=== PATIENT | male | born 1950 | race Caucasian/White ===

== ENCOUNTER 2020-09-16 13:47 | Inpatient (IN) | payer MEDICAID, OTHER ==
[~2020-09-16] VITALS: Ht 170.2 cm; Wt 77.6 kg
[2020-09-16] VITALS: BP 135/82
[2020-09-16 17:20] LABS: HEMATOCRIT. 43.8 % (42.0-52.0); HEMOGLOBIN. 14.7 g/dL (14.0-18.0); MEAN CORPUSCULAR HEMOGLOBIN 30.7 pg (28.0-32.0); MEAN CORPUSCULAR VOLUME 91.2 fL (80.0-94.0); MEAN PLATELET VOLUME 9.3 fl (7.4-10.4); PLATELET 218 x1000/uL (130-400); RED CELL DISTRIBUTION WIDTH 14.1 % (11.6-14.6)
[2020-09-16 17:26] LABS: CHLORIDE 109 mEq/L (98-107)
[2020-09-16 17:29] LABS: INR 1.1; PROTHROMBIN TIME 11.5 sec (9.6-11.0)
[2020-09-16 17:48] LABS: PLATELET ESTIMATE NORMAL
[2020-09-16] MEDS ORDERED: ENOXAPARIN 80MG/0.8ML SYR SUBCUT ONE (18:15)
[2020-09-16] MEDS ORDERED: ASPIRIN 325MG EC TABLET PO ONE (18:15)
[2020-09-16 20:32] LABS: CLARITY URINE CLEAR (CLEAR); COLOR URINE YELLOW (YELLOW); KETONES URINE TRACE (NEGATIVE); LEUKOCYTE ESTERASE URINE NEGATIVE (NEGATIVE); NITRITE URINE NEGATIVE (NEGATIVE); OCCULT BLOOD URINE NEGATIVE (NEGATIVE); PROTEIN URINE TRACE (NEGATIVE); SPECIFIC GRAVITY URINE 1.027 (1.005-1.030)
[2020-09-16] MEDS ORDERED: ACETAMINOPHEN 650MG SUPP PR PRN (21:45)
[2020-09-16] MEDS ORDERED: ONDANSETRON HCL 4MG/2ML INJ IV PRN (21:45)
[2020-09-16] MEDS ORDERED: NALOXONE HCL 0.4MG/ML VIAL IV PRN (22:00)
[2020-09-16 23:00] VITALS: BP 134/86
[2020-09-16] MEDS ORDERED: MIDAZOLAM HCL 5 MG/5 ML VIAL ONE (23:52)
[2020-09-16] MEDS ORDERED: FENTANYL CITRATE/PF 50MCG/ML 5ML VIAL ONE (23:53)
[2020-09-16] MEDS ORDERED: LIDOCAINE HCL 1% 20ML VIAL (Pyxis) INJ ONE (23:53)
[2020-09-16] MEDS ORDERED: IOHEXOL-300 100 ML BOTTLE ONE (23:54)
[2020-09-16] MEDS ORDERED: IODIXANOL 320MG/ML 100 ML BOTTLE IV ONE (23:54)
[2020-09-17] VITALS (48 sets, daily range): BP systolic 83–142; BP diastolic 49–113
[2020-09-17] MEDS ORDERED: IODIXANOL 320MG/ML 100 ML BOTTLE IV ONE (00:51)
[2020-09-17] MEDS ORDERED: HEPARIN 25,000 UNITS PREMIX 250 ML IV SCH (01:45)
[2020-09-17] MEDS ORDERED: LISINOPRIL 5MG TABLET PO SCH (01:45)
[2020-09-17] MEDS ORDERED: FUROSEMIDE 40MG/4ML VIAL IVP SCH (01:45)
[2020-09-17 03:16] LABS: BASOPHILS % 0.5 % (0.0-2.0); HEMATOCRIT. 47.7 % (42.0-52.0); HEMOGLOBIN. 16.4 g/dL (14.0-18.0); MEAN CORPUSCULAR HEMOGLOBIN 31.4 pg (28.0-32.0); MEAN CORPUSCULAR VOLUME 91.4 fL (80.0-94.0); MEAN PLATELET VOLUME 9.1 fl (7.4-10.4); MONOCYTES % 7.1 % (2.0-8.0); NEUTROPHILS % 81.4 % (40.0-76.0); PLATELET 182 x1000/uL (130-400); RED BLOOD CELL COUNT 5.22 mill/uL (4.7-6.1); RED CELL DISTRIBUTION WIDTH 14.1 % (11.6-14.6)
[2020-09-17 03:23] LABS: CHLORIDE 110 mEq/L (98-107)
[2020-09-17 03:26] LABS: INR 1.1; PARTIAL THROMBOPLASTIN TIME 32.6 sec (23.4-31.0); PROTHROMBIN TIME 11.9 sec (9.6-11.0)
[2020-09-17 03:30] LABS: LDL CHOLESTEROL 108 mg/dL (5-100)
[2020-09-17 03:31] LABS: HDL CHOLESTEROL 62 mg/dL (40-59)
[2020-09-17] MEDS: MORPHINE SULFATE 2 MG/ML CPJ (NOT FOR IM USE) IV PRN ×2 (04:52→23:52)
[2020-09-17] MEDS ORDERED: HEPARIN BOLUS PRN aPTT <30 IV ×2 (05:00→12:37)
[2020-09-17] MEDS ORDERED: HEPARIN BOLUS PRN aPTT 30-44 IV ×2 (05:00→12:37)
[2020-09-17] MEDS: HEPARIN 25,000 UNITS PREMIX 250 ML IV SCH ×2 (05:38→13:30)
[2020-09-17] MEDS ORDERED: PNEUMOCOCCAL 23-VAL P-SAC VAC 0.5 ML IM ONE (08:00)
[2020-09-17] MEDS ORDERED: ENOXAPARIN 80MG/0.8ML SYR SUBCUT SCH (08:00)
[2020-09-17] MEDS: FUROSEMIDE 40MG/4ML VIAL IVP SCH ×3 (08:25→23:08)
[2020-09-17] MEDS: PANTOPRAZOLE SODIUM 40 MG/VIAL IV SCH (08:26)
[2020-09-17] MEDS ORDERED: METOPROLOL TARTRATE 25MG TABLET PO SCH (09:00)
[2020-09-17] MEDS: ASPIRIN 81MG TABLET PO SCH (09:14)
[2020-09-17] MEDS: LISINOPRIL 5MG TABLET PO SCH ×2 (09:14→20:06)
[2020-09-17] MEDS: CARVEDILOL 3.125 MG TABLET PO SCH ×2 (09:14→20:06)
[2020-09-17] MEDS: ISOSORBIDE DINITRATE 10MG TABLET PO SCH ×3 (09:15→16:56)
[2020-09-17] MEDS ORDERED: NITROGLYCERIN 50MCG/ML 10ML VIAL (CATH LAB) IV ONE (09:20)
[2020-09-17] MEDS ORDERED: NICARDIPINE 100MCG/ML 10ML VIAL (CATH LAB) IV ONE (09:20)
[2020-09-17] MEDS ORDERED: ACETAMINOPHEN 325MG TABLET PO PRN (12:30)
[2020-09-17] MEDS ORDERED: DOCUSATE SODIUM 100MG CAPSULE PO PRN (18:45)
[2020-09-17] MEDS: ATORVASTATIN CALCIUM 40MG TABLET PO SCH (20:06)
[2020-09-18] VITALS (24 sets, daily range): BP systolic 93–124; BP diastolic 57–85
[2020-09-18 05:16] LABS: BASOPHILS % 0.7 % (0.0-2.0); EOSINOPHILS % 0.1 % (0.0-5.0); HEMATOCRIT. 46.5 % (42.0-52.0); HEMOGLOBIN. 15.5 g/dL (14.0-18.0); LYMPHOCYTES % 13.2 % (20.0-50.0); MEAN CORPUSCULAR HEMOGLOBIN 30.4 pg (28.0-32.0); MEAN CORPUSCULAR VOLUME 90.9 fL (80.0-94.0); MEAN PLATELET VOLUME 9.5 fl (7.4-10.4); MONOCYTES % 9.1 % (2.0-8.0); NEUTROPHILS % 76.9 % (40.0-76.0); PLATELET 176 x1000/uL (130-400); RED BLOOD CELL COUNT 5.11 mill/uL (4.7-6.1)
[2020-09-18 05:23] LABS: CHLORIDE 103 mEq/L (98-107)
[2020-09-18] MEDS: PANTOPRAZOLE SODIUM 40 MG/VIAL IV SCH (08:38)
[2020-09-18] MEDS: FUROSEMIDE 40MG/4ML VIAL IVP SCH ×3 (08:39→23:56)
[2020-09-18] MEDS: ASPIRIN 81MG TABLET PO SCH (08:39)
[2020-09-18] MEDS: CARVEDILOL 3.125 MG TABLET PO SCH ×2 (08:40→20:39)
[2020-09-18] MEDS: LISINOPRIL 5MG TABLET PO SCH ×2 (08:40→20:38)
[2020-09-18] MEDS: ISOSORBIDE DINITRATE 10MG TABLET PO SCH ×3 (08:40→17:00)
[2020-09-18] MEDS: HEPARIN 25,000 UNITS PREMIX 250 ML IV SCH (09:27)
[2020-09-18] MEDS ORDERED: POTASSIUM CHLORIDE 20MEQ TABLET SR PO SCH (10:00)
[2020-09-18] MEDS: ATORVASTATIN CALCIUM 40MG TABLET PO SCH (20:38)
[2020-09-18] MEDS ORDERED: DIPHENHYDRAMINE 25MG CAPSULE PO PRN (21:00)
[2020-09-18] MEDS ORDERED: ZOLPIDEM TARTRATE 5MG TABLET PO PRN (21:00)
[2020-09-18] MEDS ORDERED: NITROGLYCERIN 0.4MG TABLET SL SL PRN (21:30)
[2020-09-18] MEDS ORDERED: ACETAMINOPHEN 325MG TABLET PO PRN (21:30)
[2020-09-18] MEDS ORDERED: FUROSEMIDE 40MG/4ML VIAL IVP NR (22:00)
[2020-09-18] MEDS: ALLOPURINOL 300 MG TABLET PO SCH (22:21)
[2020-09-18] MEDS ORDERED: DOCUSATE SODIUM 100MG CAPSULE PO SCH (22:30)
[2020-09-18] MEDS ORDERED: ASCORBIC ACID 500 MG TABLET PO SCH (22:30)
[2020-09-18] MEDS ORDERED: BISACODYL 10MG SUPP PR PRN (22:30)
[2020-09-18] MEDS ORDERED: MAGNESIUM 2 G PREMIX 50 ML IV NR (23:00)
[2020-09-18] MEDS ORDERED: CHLORHEXIDINE GLUCONATE 4% EXTERNAL USE TOP SCH (23:00)
[2020-09-19] VITALS (32 sets, daily range): BP systolic 83–140; BP diastolic 49–89
[2020-09-19] MEDS: MORPHINE SULFATE 2 MG/ML CPJ (NOT FOR IM USE) IV PRN (03:42)
[2020-09-19] MEDS: CHLORHEXIDINE GLUCONATE 4% EXTERNAL USE TOP SCH ×2 (05:14→05:22)
[2020-09-19] MEDS: ALLOPURINOL 300 MG TABLET PO SCH (05:22)
[2020-09-19 06:07] LABS: CHLORIDE 105 mEq/L (98-107)
[2020-09-19 06:13] LABS: BASOPHILS % 0.3 % (0.0-2.0); EOSINOPHILS % 0.1 % (0.0-5.0); HEMATOCRIT. 48.7 % (42.0-52.0); HEMOGLOBIN. 16.2 g/dL (14.0-18.0); LYMPHOCYTES % 14.8 % (20.0-50.0); MEAN CORPUSCULAR HEMOGLOBIN 30.5 pg (28.0-32.0); MEAN CORPUSCULAR VOLUME 91.6 fL (80.0-94.0); MEAN PLATELET VOLUME 9.6 fl (7.4-10.4); MONOCYTES % 10.8 % (2.0-8.0); PLATELET 160 x1000/uL (130-400); RED BLOOD CELL COUNT 5.32 mill/uL (4.7-6.1); RED CELL DISTRIBUTION WIDTH 14.4 % (11.6-14.6)
[2020-09-19] MEDS: ASPIRIN 81MG TABLET PO SCH (09:47)
[2020-09-19] MEDS: CARVEDILOL 3.125 MG TABLET PO SCH ×2 (09:47→21:00)
[2020-09-19] MEDS: ISOSORBIDE DINITRATE 10MG TABLET PO SCH ×3 (09:47→17:19)
[2020-09-19] MEDS: LISINOPRIL 5MG TABLET PO SCH (09:47)
[2020-09-19] MEDS: PANTOPRAZOLE SODIUM 40 MG/VIAL IV SCH (09:54)
[2020-09-19] MEDS ORDERED: DOBUTAMINE 250 MG PREMIX 250 ML IV PRN (10:00)
[2020-09-19] MEDS ORDERED: NICARDIPINE 40 MG/200 ML PREMIX 200 ML IV PRN (10:00)
[2020-09-19] MEDS ORDERED: DEL NIDO ELECTROLYTE-S(PH 7.4) 1,000 ML IV PRN ×2 (10:00)
[2020-09-19] MEDS ORDERED: EPINEPHRINE 5 MG in DEXT 5% WATER 245 ML IV PRN (10:00)
[2020-09-19] MEDS ORDERED: INSULIN REGULAR (DRIP) 100 UNITS in SODIUM CHLORIDE 0.9% 99 ML IV PRN (10:00)
[2020-09-19] MEDS ORDERED: PAPAVERINE HCL 180MG in SODIUM CHLORIDE 0.9% 24ML IV PRN (10:00)
[2020-09-19] MEDS ORDERED: CEFAZOLIN 2,000 MG in DEXT 5% WATER 100 ML IV PRN (10:00)
[2020-09-19] MEDS ORDERED: NOREPINEPHRINE 8 MG in DEXT 5% WATER 242 ML IV PRN (10:00)
[2020-09-19] MEDS ORDERED: DOPAMINE 400 MG PREMIX 250 ML IV PRN (10:00)
[2020-09-19] MEDS: FUROSEMIDE 40MG/4ML VIAL IVP SCH ×2 (10:15→15:38)
[2020-09-19] MEDS ORDERED: NITROGLYCERIN 0.4MG TABLET SL SL PRN (10:45)
[2020-09-19] MEDS ORDERED: POTASSIUM CHLORIDE INJ 40 MEQ in DEXT 5% WATER 250 ML IV SCH (11:00)
[2020-09-19] MEDS: HEPARIN 25,000 UNITS PREMIX 250 ML IV SCH (14:15)
[2020-09-19] MEDS: ALBUMIN HUMAN 25GM/100ML (25%) IV SCH ×2 (18:06→19:25)
[2020-09-19] MEDS: ATORVASTATIN CALCIUM 40MG TABLET PO SCH (21:49)
[2020-09-20] VITALS (72 sets, daily range): BP systolic 89–152; BP diastolic 26–96
[2020-09-20] MEDS: ALBUMIN HUMAN 25GM/100ML (25%) IV SCH (00:11)
[2020-09-20 00:38] LABS: CHLORIDE 102 mEq/L (98-107)
[2020-09-20 00:44] LABS: PHOSPHORUS 3.8 mg/dL (2.5-4.9)
[2020-09-20] MEDS ORDERED: SODIUM CHL 0.9% IV ONE (01:30)
[2020-09-20] MEDS ORDERED: KCL IV ONE (01:30)
[2020-09-20] MEDS ORDERED: POTASSIUM CHLORIDE INJ 20 MEQ in SODIUM CHLORIDE 0.9% 250 ML IV NR (02:00)
[2020-09-20] MEDS: FUROSEMIDE 40MG/4ML VIAL IVP SCH ×3 (02:16→16:29)
[2020-09-20] MEDS ORDERED: POTASSIUM CHLORIDE INJ 40 MEQ in DEXT 5% WATER 250 ML IV NR (07:45)
[2020-09-20] MEDS ORDERED: MAGNESIUM 2 G PREMIX 50 ML IV NR (07:45)
[2020-09-20] MEDS: PANTOPRAZOLE SODIUM 40 MG/VIAL IV SCH (08:18)
[2020-09-20] MEDS: ASPIRIN 81MG TABLET PO SCH (08:19)
[2020-09-20] MEDS: CARVEDILOL 3.125 MG TABLET PO SCH ×2 (08:30→20:36)
[2020-09-20] MEDS ORDERED: AMIODARONE HCL 50MG/ML 9ML VIAL IV ONE (11:45)
[2020-09-20] MEDS: AMIODARONE HCL 900 MG in DEXT 5% WATER 500 ML IV PRN ×2 (12:32→18:29)
[2020-09-20] MEDS ORDERED: AMIODARONE HCL 150 MG in DEXT 5% WATER 97 ML IV NR (13:00)
[2020-09-20] MEDS: HEPARIN 25,000 UNITS PREMIX 250 ML IV SCH (15:39)
[2020-09-20 16:27] LABS: BASOPHILS % 0.4 % (0.0-2.0); EOSINOPHILS % 1.1 % (0.0-5.0); HEMATOCRIT. 41.9 % (42.0-52.0); HEMOGLOBIN. 14.6 g/dL (14.0-18.0); LYMPHOCYTES % 17.6 % (20.0-50.0); MEAN CORPUSCULAR HEMOGLOBIN 31.7 pg (28.0-32.0); MEAN PLATELET VOLUME 9.8 fl (7.4-10.4); MONOCYTES % 10.4 % (2.0-8.0); NEUTROPHILS % 70.5 % (40.0-76.0); PLATELET 154 x1000/uL (130-400); RED BLOOD CELL COUNT 4.61 mill/uL (4.7-6.1); RED CELL DISTRIBUTION WIDTH 13.9 % (11.6-14.6)
[2020-09-20 16:36] LABS: CHLORIDE 103 mEq/L (98-107)
[2020-09-20] MEDS: ATORVASTATIN CALCIUM 40MG TABLET PO SCH (20:38)
[2020-09-20] MEDS: ALLOPURINOL 300 MG TABLET PO SCH (20:39)
[2020-09-20] MEDS: MORPHINE SULFATE 2 MG/ML CPJ (NOT FOR IM USE) IV PRN (20:40)
[2020-09-20] MEDS ORDERED: ASCORBIC ACID 500 MG TABLET PO SCH (21:00)
[2020-09-20] MEDS ORDERED: CHLORHEXIDINE GLUCONATE 4% EXTERNAL USE TOP SCH (21:00)
[2020-09-20] MEDS ORDERED: DIPHENHYDRAMINE 25MG CAPSULE PO PRN (21:00)
[2020-09-20] MEDS ORDERED: DOCUSATE SODIUM 100MG CAPSULE PO SCH (21:00)
[2020-09-20] MEDS ORDERED: BISACODYL 10MG SUPP PR PRN (21:00)
[2020-09-21] VITALS (71 sets, daily range): BP systolic 84–121; BP diastolic 29–99
[2020-09-21] MEDS: FUROSEMIDE 40MG/4ML VIAL IVP SCH ×4 (00:04→23:46)
[2020-09-21] MEDS ORDERED: BACITRACIN 50,000 UNITS/VIAL ONE ×2 (04:28→05:47)
[2020-09-21] MEDS ORDERED: SKIN ADHESIVE 0.7 GM EA TOP ONE (04:28)
[2020-09-21] MEDS ORDERED: THROMBIN (BOVINE) 5000 UNITS/VIAL TOP ONE (04:28)
[2020-09-21] MEDS: ALLOPURINOL 300 MG TABLET PO SCH (04:43)
[2020-09-21] MEDS ORDERED: HEPARIN 1000 UNITS/ML 10ML ONE ×2 (04:59→07:48)
[2020-09-21] MEDS ORDERED: CHLORHEXIDINE GLUCONATE 4% EXTERNAL USE TOP SCH (05:00)
[2020-09-21 05:31] LABS: BASOPHILS % 0.4 % (0.0-2.0); EOSINOPHILS % 1.1 % (0.0-5.0); HEMATOCRIT. 43.5 % (42.0-52.0); HEMOGLOBIN. 15.3 g/dL (14.0-18.0); LYMPHOCYTES % 15.5 % (20.0-50.0); MEAN CORPUSCULAR HEMOGLOBIN 31.6 pg (28.0-32.0); MEAN CORPUSCULAR VOLUME 89.8 fL (80.0-94.0); MEAN PLATELET VOLUME 9.5 fl (7.4-10.4); MONOCYTES % 10.3 % (2.0-8.0); NEUTROPHILS % 72.7 % (40.0-76.0); PLATELET 161 x1000/uL (130-400); RED BLOOD CELL COUNT 4.84 mill/uL (4.7-6.1); RED CELL DISTRIBUTION WIDTH 13.8 % (11.6-14.6)
[2020-09-21 05:38] LABS: CHLORIDE 102 mEq/L (98-107)
[2020-09-21 05:43] LABS: PHOSPHORUS 3.8 mg/dL (2.5-4.9)
[2020-09-21] MEDS ORDERED: DEL NIDO ELECTROLYTE-S(PH 7.4) 1,000 ML IV PRN ×2 (06:00)
[2020-09-21] MEDS ORDERED: CEFAZOLIN 2,000 MG in DEXT 5% WATER 100 ML IV PRN (06:00)
[2020-09-21] MEDS ORDERED: DOPAMINE 400 MG PREMIX 250 ML IV PRN (06:00)
[2020-09-21] MEDS ORDERED: DOBUTAMINE 250 MG PREMIX 250 ML IV PRN (06:00)
[2020-09-21] MEDS ORDERED: PAPAVERINE HCL 180MG in SODIUM CHLORIDE 0.9% 24ML IV PRN (06:00)
[2020-09-21] MEDS ORDERED: EPINEPHRINE 5 MG in DEXT 5% WATER 245 ML IV PRN (06:00)
[2020-09-21] MEDS ORDERED: NICARDIPINE 40 MG/200 ML PREMIX 200 ML IV PRN (06:00)
[2020-09-21] MEDS ORDERED: NOREPINEPHRINE 8 MG in DEXT 5% WATER 242 ML IV PRN (06:00)
[2020-09-21] MEDS ORDERED: DEXAMETHASONE 4MG/ML 1ML VIAL ONE (06:16)
[2020-09-21] MEDS ORDERED: FUROSEMIDE 100MG/10ML VIAL ONE (06:51)
[2020-09-21] MEDS ORDERED: AMIODARONE HCL 50MG/ML 3ML VIAL IV ONE (06:52)
[2020-09-21] MEDS ORDERED: HYDROMORPHONE HCL/PF 2MG/ML (OR) ONE (07:04)
[2020-09-21] MEDS ORDERED: CALCIUM CHLORIDE 1GM/10ML SYR IV ONE ×2 (07:08→08:32)
[2020-09-21] MEDS ORDERED: ROCURONIUM BROMIDE 10MG/ML VIAL 5ML IV ONE (07:33)
[2020-09-21] MEDS ORDERED: BUMETANIDE 1MG/4ML VIAL ONE (07:49)
[2020-09-21] MEDS: CARVEDILOL 3.125 MG TABLET PO SCH ×2 (09:00→21:00)
[2020-09-21] MEDS: ASPIRIN 81MG TABLET PO SCH (09:00)
[2020-09-21] MEDS: PANTOPRAZOLE SODIUM 40 MG/VIAL IV SCH (09:00)
[2020-09-21] MEDS ORDERED: PROTAMINE SULFATE 10MG/ML VIAL 25ML IV ONE (09:22)
[2020-09-21] MEDS ORDERED: SODIUM BICARBONATE 8.4% 1 MEQ/ML 50ML SYR IV ONE (09:46)
[2020-09-21] MEDS ORDERED: MAGNESIUM 2 G PREMIX 50 ML IV PRN (10:00)
[2020-09-21] MEDS ORDERED: OXYCODONE HCL/ACETAMINOPHEN 5/325MG TABLET PO PRN ×2 (10:00)
[2020-09-21] MEDS ORDERED: ACETAMINOPHEN 325MG TABLET PO PRN (10:00)
[2020-09-21] MEDS ORDERED: ONDANSETRON HCL 4MG/2ML INJ IV PRN (10:00)
[2020-09-21] MEDS ORDERED: ALBUMIN HUMAN 25GM/100ML (25%) IV PRN (10:00)
[2020-09-21] MEDS ORDERED: SODIUM CHLORIDE 0.9% 1,000 ML IV PRN (10:00)
[2020-09-21] MEDS ORDERED: CALCIUM CHLORIDE 3,000 MG in DEXT 5% WATER 250 ML IV PRN (10:00)
[2020-09-21] MEDS ORDERED: ALBUMIN HUMAN 12.5G/250ML (5%) IV PRN (10:00)
[2020-09-21] MEDS ORDERED: MAGNESIUM SULFATE 3 GM in DEXT 5% WATER 100 ML IV PRN (10:00)
[2020-09-21] MEDS ORDERED: MAGNESIUM 1 G PREMIX 100 ML IV PRN (10:00)
[2020-09-21] MEDS ORDERED: MORPHINE SULFATE 2 MG/ML CPJ (NOT FOR IM USE) IV PRN (10:00)
[2020-09-21] MEDS ORDERED: POTASSIUM CHLORIDE 40MEQ/20ML INJ IV ONE ×2 (10:49→12:43)
[2020-09-21] MEDS: MAGNESIUM HYDROXIDE 400MG/5ML 30ML UDC PO SCH ×4 (11:00→23:45)
[2020-09-21 11:18] LABS: BG BASE EXCESS -7.4 mmol/L (-2.0-2.0); BG CARBOXYHEMOGLOBIN 0.9 % (0.5-1.5); BG FRACTION INSPIRED OXYGEN 48; BG HCO3 ACT 19.6 mmol/L (22.0-26.0); BG METHEMOGLOBIN 0.7 % (0.0-1.5); BG OXYGEN SATURATION 89.8 % (92.0-98.5); BG OXYHEMOGLOBIN 88.4 % (94.0-97.0); BG PCO2 45.6 mmHg (35.0-45.0); BG PH 7.252 (7.350-7.450); BG PO2 66.4 mmHg (75.0-100.0); BG SAMPLE SITE ALINE; BG TOTAL HEMOGLOBIN 13.8 g/dL (12.0-18.0); BG VENT MODE MASK - SIMPLE
[2020-09-21 11:59] LABS: HEMATOCRIT. 37.1 % (42.0-52.0); HEMOGLOBIN. 12.6 g/dL (14.0-18.0); MEAN CORPUSCULAR HEMOGLOBIN 31.5 pg (28.0-32.0); MEAN CORPUSCULAR VOLUME 92.6 fL (80.0-94.0); MEAN PLATELET VOLUME 9.9 fl (7.4-10.4); PLATELET 136 x1000/uL (130-400); RED BLOOD CELL COUNT 4.01 mill/uL (4.7-6.1); RED CELL DISTRIBUTION WIDTH 13.4 % (11.6-14.6)
[2020-09-21] MEDS ORDERED: KCL 10MEQ/50ML PREMIX 150 ML IV PRN (12:15)
[2020-09-21] MEDS ORDERED: KCL 10MEQ/50ML PREMIX 100 ML IV PRN (12:15)
[2020-09-21] MEDS ORDERED: KCL 10MEQ/50ML PREMIX 200 ML IV PRN (12:15)
[2020-09-21] MEDS: EPINEPHRINE 5 MG in DEXT 5% WATER 245 ML IV SCH ×3 (12:18→22:10)
[2020-09-21] MEDS: DOPAMINE 400MG/250ML PREMIX 250 ML IV SCH (12:30)
[2020-09-21] MEDS: AMIODARONE HCL 900 MG in DEXT 5% WATER 500 ML IV PRN (12:31)
[2020-09-21] MEDS: INSULIN REGULAR (DRIP) 100 UNITS in SODIUM CHLORIDE 0.9% 99 ML IV PRN ×2 (12:35→13:26)
[2020-09-21] MEDS ORDERED: ALBUMIN HUMAN 25GM/100ML (25%) IV ONE (12:43)
[2020-09-21] MEDS ORDERED: MAGNESIUM SULFATE 5GM/10ML VIAL IV ONE (12:43)
[2020-09-21] MEDS ORDERED: HEPARIN 10,000 UNITS/ML VIAL ONE (12:43)
[2020-09-21] MEDS ORDERED: SODIUM BICARBONATE 8.4% 1 MEQ/ML 50ML SYR IV SCH ×2 (12:45→12:55)
[2020-09-21] MEDS: DEXT 5%/0.45% NACL 1000ML 1,000 ML IV SCH (13:05)
[2020-09-21] MEDS: IPRATROPIUM/ALBUTEROL 0.5-3(2.5)MG/3ML NEB HHN SCH ×4 (13:38→23:49)
[2020-09-21] MEDS: CEFAZOLIN 1000MG PREMIX 50 ML IV SCH ×2 (14:43→22:13)
[2020-09-21] MEDS: KETOROLAC 30MG/ML VIAL IV PRN ×2 (15:16→23:50)
[2020-09-21] MEDS ORDERED: ALBUMIN HUMAN 25GM/100ML (25%) IV NR (17:15)
[2020-09-21 17:33] LABS: BG BASE EXCESS -2.1 mmol/L (-2.0-2.0); BG CARBOXYHEMOGLOBIN 0.3 % (0.5-1.5); BG FRACTION INSPIRED OXYGEN 44; BG HCO3 ACT 21.8 mmol/L (22.0-26.0); BG METHEMOGLOBIN 0.3 % (0.0-1.5); BG OXYHEMOGLOBIN 92.4 % (94.0-97.0); BG PCO2 34.3 mmHg (35.0-45.0); BG PH 7.422 (7.350-7.450); BG PO2 64.9 mmHg (75.0-100.0); BG SAMPLE SITE ALINE; BG TOTAL HEMOGLOBIN 10.2 g/dL (12.0-18.0); BG VENT MODE MASK - SIMPLE
[2020-09-21 17:59] LABS: HEMATOCRIT. 29.5 % (42.0-52.0); HEMOGLOBIN. 10.3 g/dL (14.0-18.0); MEAN CORPUSCULAR HEMOGLOBIN 31.6 pg (28.0-32.0); MEAN CORPUSCULAR VOLUME 91.1 fL (80.0-94.0); MEAN PLATELET VOLUME 10.4 fl (7.4-10.4); PLATELET 131 x1000/uL (130-400); RED BLOOD CELL COUNT 3.24 mill/uL (4.7-6.1); RED CELL DISTRIBUTION WIDTH 13.7 % (11.6-14.6)
[2020-09-21 18:18] LABS: PLATELET ESTIMATE NORMAL
[2020-09-21] MEDS: DOCUSATE SODIUM 100MG CAPSULE PO SCH (18:45)
[2020-09-21] MEDS: BACITRACIN 15GM TUBE TOP SCH (18:46)
[2020-09-21 18:51] LABS: PLATELET ESTIMATE NORMAL
[2020-09-21] MEDS ORDERED: DEXTROSE 50% WATER 50ML SYRINGE IV PRN ×2 (19:45)
[2020-09-21] MEDS ORDERED: INSULIN REGULAR (DRIP) 100 UNITS in SODIUM CHLORIDE 0.9% 100 ML IV SCH (20:00)
[2020-09-21] MEDS: BLOOD SUGAR DIAGNOSTIC STRIP TEST SCH ×4 (20:00→23:00)
[2020-09-21] MEDS: ATORVASTATIN CALCIUM 40MG TABLET PO SCH (21:37)
[2020-09-22] VITALS (126 sets, daily range): BP systolic 58–151; BP diastolic 7–140
[2020-09-22] MEDS: INSULIN REGULAR (DRIP) 100 UNITS in SODIUM CHLORIDE 0.9% 99 ML IV PRN (00:40)
[2020-09-22] MEDS: IPRATROPIUM/ALBUTEROL 0.5-3(2.5)MG/3ML NEB HHN SCH ×6 (00:46→20:20)
[2020-09-22] MEDS: BLOOD SUGAR DIAGNOSTIC STRIP TEST SCH ×21 (01:00→21:00)
[2020-09-22] MEDS ORDERED: AMIODARONE HCL 900 MG in DEXT 5% WATER 482 ML IV SCH (04:00)
[2020-09-22] MEDS: MAGNESIUM HYDROXIDE 400MG/5ML 30ML UDC PO SCH ×3 (04:10→11:00)
[2020-09-22 06:21] LABS: HEMATOCRIT. 27.8 % (42.0-52.0); HEMOGLOBIN. 9.5 g/dL (14.0-18.0); MEAN CORPUSCULAR VOLUME 90.8 fL (80.0-94.0); MEAN PLATELET VOLUME 10.6 fl (7.4-10.4); PLATELET 116 x1000/uL (130-400); RED BLOOD CELL COUNT 3.07 mill/uL (4.7-6.1); RED CELL DISTRIBUTION WIDTH 13.6 % (11.6-14.6)
[2020-09-22] MEDS: CEFAZOLIN 1000MG PREMIX 50 ML IV SCH (06:30)
[2020-09-22] MEDS ORDERED: FUROSEMIDE 100MG/10ML VIAL IVP SCH (08:15)
[2020-09-22] MEDS: CARVEDILOL 3.125 MG TABLET PO SCH ×2 (08:41→21:00)
[2020-09-22] MEDS: BACITRACIN 15GM TUBE TOP SCH ×2 (08:43→16:19)
[2020-09-22] MEDS: PANTOPRAZOLE SODIUM 40 MG/VIAL IV SCH (08:54)
[2020-09-22] MEDS: ASPIRIN 81MG TABLET PO SCH (08:54)
[2020-09-22] MEDS: AMIODARONE HCL 200 MG TABLET PO SCH ×2 (08:54→21:10)
[2020-09-22] MEDS: FAMOTIDINE 20MG/2ML VIAL IV SCH (08:54)
[2020-09-22] MEDS: DOCUSATE SODIUM 100MG CAPSULE PO SCH ×2 (08:55→17:03)
[2020-09-22] MEDS ORDERED: SODIUM CHLORIDE 0.9% IV SCH (09:00)
[2020-09-22] MEDS ORDERED: FUROSEMIDE IV SCH (09:00)
[2020-09-22] MEDS ORDERED: IPRATROPIUM/ALBUTEROL 0.5-3(2.5)MG/3ML NEB HHN PRN (10:00)
[2020-09-22] MEDS ORDERED: INSULIN REGULAR (DRIP) 100 UNITS in SODIUM CHLORIDE 0.9% 99 ML IV PRN (11:30)
[2020-09-22] MEDS ORDERED: ALBUMIN HUMAN 25GM/100ML (25%) IV ONE ×3 (12:00→18:00)
[2020-09-22] MEDS: DEXT 5%/0.45% NACL 1000ML 1,000 ML IV SCH (12:21)
[2020-09-22] MEDS ORDERED: ACETYLCYSTEINE 100MG/ML 10% VIAL 4ML INH SCH (14:00)
[2020-09-22] MEDS ORDERED: NA PHOS,M-B/NA PHOS,DI-BA ENEMA 118ML PR NR (15:45)
[2020-09-22] MEDS: ACETYLCYSTEINE 100MG/ML 10% VIAL 4ML INH SCH ×2 (15:46→22:00)
[2020-09-22] MEDS ORDERED: METOLAZONE 5MG TABLET PO NR (17:00)
[2020-09-22] MEDS: EPINEPHRINE 5 MG in DEXT 5% WATER 245 ML IV SCH (18:32)
[2020-09-22] MEDS ORDERED: DEXTROSE 50% WATER 50ML SYRINGE IV PRN (19:15)
[2020-09-22] MEDS: ACETAMINOPHEN 325MG TABLET PO PRN (20:36)
[2020-09-22] MEDS: ATORVASTATIN CALCIUM 40MG TABLET PO SCH (21:10)
[2020-09-22] MEDS: INSULIN LISPRO 100 UNITS/ML SUBCUT SCH (21:20)
[2020-09-22] MEDS: EPINEPHRINE 10 MG in SODIUM CHLORIDE 0.9% 240 ML IV PRN ×2 (22:13→22:30)
[2020-09-22] MEDS ORDERED: ALBUMIN HUMAN 25GM/100ML (25%) IV NR (23:00)
[2020-09-22 23:13] LABS: BG BASE EXCESS -1.6 mmol/L (-2.0-2.0); BG CARBOXYHEMOGLOBIN 0.3 % (0.5-1.5); BG DEOXYHEMOGLOBIN 9.8 % (0.0-5.0); BG FRACTION INSPIRED OXYGEN 36; BG HCO3 ACT 21.5 mmol/L (22.0-26.0); BG METHEMOGLOBIN 0.3 % (0.0-1.5); BG OXYGEN SATURATION 90.1 % (92.0-98.5); BG OXYHEMOGLOBIN 89.6 % (94.0-97.0); BG PCO2 30.3 mmHg (35.0-45.0); BG PH 7.469 (7.350-7.450); BG PO2 59.2 mmHg (75.0-100.0); BG SAMPLE SITE ALINE; BG TOTAL HEMOGLOBIN 9.3 g/dL (12.0-18.0); BG VENT MODE NASAL CANNULA
[2020-09-22 23:29] LABS: HEMOGLOBIN. 8.3 g/dL (14.0-18.0); MEAN CORPUSCULAR HEMOGLOBIN 30.9 pg (28.0-32.0); MEAN CORPUSCULAR VOLUME 92.4 fL (80.0-94.0); PLATELET 115 x1000/uL (130-400)
[2020-09-23] VITALS (129 sets, daily range): BP systolic 45–164; BP diastolic 29–113
[2020-09-23] MEDS ORDERED: NON FORMULARY PATIENT HOME MED XX SCH (00:45)
[2020-09-23] MEDS: DOPAMINE 400MG/250ML PREMIX 250 ML IV SCH ×2 (01:03→13:14)
[2020-09-23] MEDS ORDERED: FUROSEMIDE 40MG/4ML VIAL IVP NR ×2 (02:00→06:00)
[2020-09-23] MEDS ORDERED: CALCIUM CHLORIDE 5,000 MG in DEXT 5% WATER 500 ML IV NR (02:00)
[2020-09-23] MEDS: ALBUMIN HUMAN 25GM/100ML (25%) IV NR ×2 (03:52→06:37)
[2020-09-23] MEDS: IPRATROPIUM/ALBUTEROL 0.5-3(2.5)MG/3ML NEB HHN SCH ×7 (04:00→20:34)
[2020-09-23 05:26] LABS: PLATELET ESTIMATE SLIGHTLY DECREASED
[2020-09-23] MEDS: EPINEPHRINE 10 MG in SODIUM CHLORIDE 0.9% 240 ML IV PRN ×2 (06:00→13:13)
[2020-09-23] MEDS: BLOOD SUGAR DIAGNOSTIC STRIP TEST SCH ×4 (07:50→21:00)
[2020-09-23 08:15] LABS: HEMATOCRIT. 29.4 % (42.0-52.0); HEMOGLOBIN. 9.6 g/dL (14.0-18.0); MEAN CORPUSCULAR VOLUME 92.2 fL (80.0-94.0); MEAN PLATELET VOLUME 11.2 fl (7.4-10.4); PLATELET 88 x1000/uL (130-400); RED BLOOD CELL COUNT 3.19 mill/uL (4.7-6.1); RED CELL DISTRIBUTION WIDTH 14.8 % (11.6-14.6)
[2020-09-23] MEDS: INSULIN LISPRO 100 UNITS/ML SUBCUT SCH ×4 (08:20→21:00)
[2020-09-23] MEDS: ASPIRIN 81MG TABLET PO SCH (08:42)
[2020-09-23] MEDS: AMIODARONE HCL 200 MG TABLET PO SCH ×2 (08:42→22:35)
[2020-09-23] MEDS: PANTOPRAZOLE SODIUM 40 MG/VIAL IV SCH (08:42)
[2020-09-23] MEDS: DOCUSATE SODIUM 100MG CAPSULE PO SCH ×2 (08:42→17:43)
[2020-09-23] MEDS: FAMOTIDINE 20MG/2ML VIAL IV SCH (08:42)
[2020-09-23] MEDS ORDERED: SODIUM BICARBONATE 8.4% 1 MEQ/ML 50ML SYR IV NR (08:45)
[2020-09-23] MEDS ORDERED: DEXTROSE 50% WATER 50ML SYRINGE IV NR (08:45)
[2020-09-23] MEDS ORDERED: INSULIN REGULAR (HUMULIN R) 300UNITS/3ML VIAL SUBCUT NR (08:45)
[2020-09-23] MEDS: CARVEDILOL 3.125 MG TABLET PO SCH ×2 (08:47→21:00)
[2020-09-23] MEDS: BACITRACIN 15GM TUBE TOP SCH ×2 (08:50→17:43)
[2020-09-23] MEDS ORDERED: SODIUM CHLORIDE 0.9% IV SCH (09:00)
[2020-09-23] MEDS ORDERED: FUROSEMIDE IV SCH (09:00)
[2020-09-23] MEDS: ACETYLCYSTEINE 100MG/ML 10% VIAL 4ML INH SCH ×3 (10:24→16:44)
[2020-09-23] MEDS ORDERED: SODIUM POLYSTYRENE SULFONATE 15 G/60 ML BOT PO NR (11:00)
[2020-09-23 11:17] LABS: BG BASE EXCESS -3.1 mmol/L (-2.0-2.0); BG CARBOXYHEMOGLOBIN 0.3 % (0.5-1.5); BG DEOXYHEMOGLOBIN 1.5 % (0.0-5.0); BG FRACTION INSPIRED OXYGEN 100; BG HCO3 ACT 21.9 mmol/L (22.0-26.0); BG METHEMOGLOBIN 0.2 % (0.0-1.5); BG OXYGEN SATURATION 98.5 % (92.0-98.5); BG PCO2 39.2 mmHg (35.0-45.0); BG PH 7.365 (7.350-7.450); BG PO2 152.7 mmHg (75.0-100.0); BG SAMPLE SITE ALINE; BG TOTAL HEMOGLOBIN 10.8 g/dL (12.0-18.0); BG VENT MODE MASK - NRB
[2020-09-23] MEDS ORDERED: BISACODYL 10MG SUPP PR NR (11:30)
[2020-09-23] MEDS ORDERED: AMIODARONE HCL 50MG/ML 9ML VIAL IV ONE (12:15)
[2020-09-23] MEDS ORDERED: METOLAZONE 5MG TABLET PO NR (12:30)
[2020-09-23] MEDS ORDERED: BUMETANIDE 1MG/4ML VIAL IV NR (12:30)
[2020-09-23] MEDS ORDERED: LACTULOSE 20G/30ML UDC PO NR (13:15)
[2020-09-23 13:36] LABS: BG BASE EXCESS -1.8 mmol/L (-2.0-2.0); BG CARBOXYHEMOGLOBIN 0.3 % (0.5-1.5); BG FRACTION INSPIRED OXYGEN 44; BG HCO3 ACT 21.8 mmol/L (22.0-26.0); BG METHEMOGLOBIN 0.1 % (0.0-1.5); BG OXYGEN SATURATION 86.9 % (92.0-98.5); BG OXYHEMOGLOBIN 86.6 % (94.0-97.0); BG PCO2 32.7 mmHg (35.0-45.0); BG PH 7.441 (7.350-7.450); BG PO2 53.7 mmHg (75.0-100.0); BG SAMPLE SITE ALINE; BG TOTAL HEMOGLOBIN 11.1 g/dL (12.0-18.0); BG VENT MODE NASAL CANNULA
[2020-09-23] MEDS: AMIODARONE HCL 900 MG in DEXT 5% WATER 500 ML IV NR (13:53)
[2020-09-23 16:26] LABS: PLATELET ESTIMATE SLIGHTLY DECREASED
[2020-09-23 16:56] LABS: PLATELET ESTIMATE DECREASED
[2020-09-23 18:14] LABS: HEMATOCRIT 29.2 % (42.0-52.0); HEMOGLOBIN 9.8 g/dL (14.0-18.0)
[2020-09-23] MEDS ORDERED: SODIUM BICARBONATE 8.4% 1 MEQ/ML 50ML SYR IV SCH (20:15)
[2020-09-23] MEDS ORDERED: INSULIN REGULAR (HUMULIN R) 300UNITS/3ML VIAL SUBCUT ONE (20:15)
[2020-09-23] MEDS ORDERED: BUMETANIDE 1MG/4ML VIAL IV SCH (20:15)
[2020-09-23] MEDS ORDERED: INSULIN REGULAR (HUMULIN R) 300UNITS/3ML VIAL IV SCH (20:30)
[2020-09-23] MEDS ORDERED: DEXTROSE 50% WATER 50ML SYRINGE IV SCH (20:30)
[2020-09-23] MEDS ORDERED: AMIODARONE HCL 50MG/ML 3ML VIAL IV ONE (21:00)
[2020-09-23] MEDS ORDERED: AMIODARONE HCL 150 MG in DEXT 5% WATER 100 ML IV NR (21:00)
[2020-09-23 21:34] LABS: BG BASE EXCESS -2.3 mmol/L (-2.0-2.0); BG CARBOXYHEMOGLOBIN 0.3 % (0.5-1.5); BG DEOXYHEMOGLOBIN 4.1 % (0.0-5.0); BG FRACTION INSPIRED OXYGEN 100; BG HCO3 ACT 21.5 mmol/L (22.0-26.0); BG METHEMOGLOBIN 0.3 % (0.0-1.5); BG OXYGEN SATURATION 95.9 % (92.0-98.5); BG OXYHEMOGLOBIN 95.3 % (94.0-97.0); BG PCO2 33.9 mmHg (35.0-45.0); BG PH 7.421 (7.350-7.450); BG PO2 91.2 mmHg (75.0-100.0); BG SAMPLE SITE RIGHT BRACHIAL; BG TOTAL HEMOGLOBIN 11.8 g/dL (12.0-18.0); BG VENT MODE MASK - NRB
[2020-09-23] MEDS ORDERED: SODIUM POLYSTYRENE SULFONATE 15 G/60 ML BOT PO SCH (22:00)
[2020-09-23] MEDS: ATORVASTATIN CALCIUM 40MG TABLET PO SCH (22:35)
[2020-09-24] VITALS (107 sets, daily range): BP systolic 59–148; BP diastolic 27–108
[2020-09-24] MEDS: IPRATROPIUM/ALBUTEROL 0.5-3(2.5)MG/3ML NEB HHN SCH ×5 (00:15→20:32)
[2020-09-24] MEDS: ACETYLCYSTEINE 100MG/ML 10% VIAL 4ML INH SCH ×2 (00:15→15:12)
[2020-09-24] MEDS ORDERED: DEXTROSE 50% WATER 50ML SYRINGE IV ONE (01:30)
[2020-09-24] MEDS ORDERED: CALCIUM CHLORIDE 1GM/10ML SYR IV ONE (01:30)
[2020-09-24] MEDS ORDERED: AMIODARONE HCL 50MG/ML 3ML VIAL IV ONE (01:30)
[2020-09-24] MEDS ORDERED: SODIUM BICARBONATE 8.4% 1 MEQ/ML 50ML SYR IV ONE (01:30)
[2020-09-24] MEDS ORDERED: EPINEPHRINE 0.1MG/ML (1:10,000) 10ML SYR ONE (01:30)
[2020-09-24 01:48] LABS: BG BASE EXCESS -2.7 mmol/L (-2.0-2.0); BG CARBOXYHEMOGLOBIN 0.3 % (0.5-1.5); BG DEOXYHEMOGLOBIN 2.6 % (0.0-5.0); BG FRACTION INSPIRED OXYGEN 100; BG HCO3 ACT 21.6 mmol/L (22.0-26.0); BG METHEMOGLOBIN 0.2 % (0.0-1.5); BG OXYGEN SATURATION 97.4 % (92.0-98.5); BG OXYHEMOGLOBIN 96.9 % (94.0-97.0); BG PH 7.396 (7.350-7.450); BG PO2 105.8 mmHg (75.0-100.0); BG SAMPLE SITE RIGHT BRACHIAL; BG TOTAL HEMOGLOBIN 11.9 g/dL (12.0-18.0); BG VENT MODE MASK - NRB
[2020-09-24 01:55] LABS: BASOPHILS % 0.1 % (0.0-2.0); EOSINOPHILS % 0.1 % (0.0-5.0); HEMATOCRIT. 31.5 % (42.0-52.0); HEMOGLOBIN. 10.4 g/dL (14.0-18.0); LYMPHOCYTES % 7.5 % (20.0-50.0); MEAN CORPUSCULAR HEMOGLOBIN 30.2 pg (28.0-32.0); MONOCYTES % 7.9 % (2.0-8.0); NEUTROPHILS % 84.4 % (40.0-76.0); PLATELET 80 x1000/uL (130-400); RED BLOOD CELL COUNT 3.46 mill/uL (4.7-6.1); RED CELL DISTRIBUTION WIDTH 14.8 % (11.6-14.6)
[2020-09-24] MEDS: EPINEPHRINE 10 MG in SODIUM CHLORIDE 0.9% 240 ML IV PRN ×3 (02:50→19:52)
[2020-09-24] MEDS ORDERED: DEXTROSE 50% WATER 50ML SYRINGE IV NR ×2 (03:00→05:15)
[2020-09-24] MEDS ORDERED: INSULIN REGULAR (HUMULIN R) 300UNITS/3ML VIAL IV NR ×2 (03:00→05:15)
[2020-09-24] MEDS ORDERED: SODIUM POLYSTYRENE SULFONATE 15 G/60 ML BOT NG NR (03:00)
[2020-09-24 04:39] LABS: HEMATOCRIT. 32.2 % (42.0-52.0); HEMOGLOBIN. 10.7 g/dL (14.0-18.0); MEAN CORPUSCULAR HEMOGLOBIN 29.9 pg (28.0-32.0); MEAN CORPUSCULAR VOLUME 90.2 fL (80.0-94.0); MEAN PLATELET VOLUME 11.4 fl (7.4-10.4); RED BLOOD CELL COUNT 3.57 mill/uL (4.7-6.1); RED CELL DISTRIBUTION WIDTH 14.8 % (11.6-14.6)
[2020-09-24] MEDS: DOPAMINE 400MG/250ML PREMIX 250 ML IV SCH (05:03)
[2020-09-24] MEDS: SODIUM CHLORIDE 0.9% IV SCH (05:15)
[2020-09-24] MEDS: FUROSEMIDE IV SCH (05:15)
[2020-09-24 06:17] LABS: BG CARBOXYHEMOGLOBIN 0.1 % (0.5-1.5); BG DEOXYHEMOGLOBIN 6.2 % (0.0-5.0); BG FRACTION INSPIRED OXYGEN 100; BG HCO3 ACT 19.2 mmol/L (22.0-26.0); BG METHEMOGLOBIN 0.2 % (0.0-1.5); BG OXYGEN SATURATION 93.8 % (92.0-98.5); BG OXYHEMOGLOBIN 93.5 % (94.0-97.0); BG PCO2 33.1 mmHg (35.0-45.0); BG PH 7.382 (7.350-7.450); BG PO2 79.1 mmHg (75.0-100.0); BG SAMPLE SITE RIGHT BRACHIAL; BG TOTAL HEMOGLOBIN 11.6 g/dL (12.0-18.0); BG VENT MODE MASK - NRB
[2020-09-24] MEDS: SODIUM BICARBONATE 100 MEQ in SODIUM CHLORIDE 0.45% 1,000 ML IV SCH (06:30)
[2020-09-24] MEDS: BLOOD SUGAR DIAGNOSTIC STRIP TEST SCH ×4 (07:50→21:00)
[2020-09-24 08:24] LABS: BG BASE EXCESS -0.4 mmol/L (-2.0-2.0); BG CARBOXYHEMOGLOBIN 0.3 % (0.5-1.5); BG DEOXYHEMOGLOBIN 1.2 % (0.0-5.0); BG FRACTION INSPIRED OXYGEN 100; BG HCO3 ACT 22.6 mmol/L (22.0-26.0); BG METHEMOGLOBIN 0.4 % (0.0-1.5); BG OXYGEN SATURATION 98.8 % (92.0-98.5); BG OXYHEMOGLOBIN 98.1 % (94.0-97.0); BG PCO2 31.8 mmHg (35.0-45.0); BG PO2 177.9 mmHg (75.0-100.0); BG SAMPLE SITE RIGHT BRACHIAL; BG TOTAL RESPIRATORY RATE 19 b/min; BG VENT MODE MASK - BIPAP
[2020-09-24] MEDS: AMIODARONE HCL 200 MG TABLET PO SCH (08:33)
[2020-09-24] MEDS: ASPIRIN 81MG TABLET PO SCH (08:33)
[2020-09-24] MEDS: INSULIN LISPRO 100 UNITS/ML SUBCUT SCH ×4 (08:33→21:00)
[2020-09-24] MEDS: FAMOTIDINE 20MG TABLET PO SCH (08:33)
[2020-09-24] MEDS: CARVEDILOL 3.125 MG TABLET PO SCH ×2 (08:34→21:00)
[2020-09-24] MEDS: DOCUSATE SODIUM 100MG CAPSULE PO SCH ×2 (08:34→17:00)
[2020-09-24] MEDS: BACITRACIN 15GM TUBE TOP SCH ×2 (08:35→17:34)
[2020-09-24] MEDS ORDERED: HEPARIN 1000 UNITS/ML 10ML ONE (08:47)
[2020-09-24] MEDS ORDERED: LIDOCAINE HCL 1% 20ML VIAL (Pyxis) INJ ONE (08:48)
[2020-09-24 09:54] LABS: BG BASE EXCESS -0.8 mmol/L (-2.0-2.0); BG CARBOXYHEMOGLOBIN 0.3 % (0.5-1.5); BG DEOXYHEMOGLOBIN 1.7 % (0.0-5.0); BG FRACTION INSPIRED OXYGEN 100; BG HCO3 ACT 22.8 mmol/L (22.0-26.0); BG METHEMOGLOBIN 0.3 % (0.0-1.5); BG OXYGEN SATURATION 98.3 % (92.0-98.5); BG OXYHEMOGLOBIN 97.7 % (94.0-97.0); BG PCO2 34.1 mmHg (35.0-45.0); BG PH 7.443 (7.350-7.450); BG PO2 137.1 mmHg (75.0-100.0); BG SAMPLE SITE RIGHT RADIAL; BG VENT MODE MASK - BIPAP
[2020-09-24] MEDS ORDERED: VASOPRESSIN 20 UNIT in SODIUM CHLORIDE 0.9% 99 ML IV PRN (10:15)
[2020-09-24] MEDS: AMIODARONE HCL 900 MG in DEXT 5% WATER 500 ML IV NR (11:11)
[2020-09-24] MEDS: NOREPINEPHRINE 32 MG in DEXT 5% WATER 218 ML IV PRN (11:12)
[2020-09-24] MEDS ORDERED: WATER IV ONE (12:30)
[2020-09-24] MEDS ORDERED: DEXTROSE 5% IV ONE (12:30)
[2020-09-24] MEDS ORDERED: AMIODARONE HCL IV ONE (12:30)
[2020-09-24 13:52] LABS: HEPATITIS B SURFACE ANTIGEN NEGATIVE
[2020-09-24 14:22] LABS: HEPATITIS A AB IGM NEGATIVE (NEGATIVE)
[2020-09-24 14:22] LABS: PLATELET ESTIMATE DECREASED
[2020-09-24 14:23] LABS: PLATELET 77 x1000/uL (130-400)
[2020-09-24 15:19] LABS: HEMOGLOBIN. 11.8 g/dL (14.0-18.0); MEAN CORPUSCULAR HEMOGLOBIN 31.4 pg (28.0-32.0); MEAN CORPUSCULAR VOLUME 90.4 fL (80.0-94.0); MEAN PLATELET VOLUME 11.4 fl (7.4-10.4); PLATELET 85 x1000/uL (130-400); RED BLOOD CELL COUNT 3.76 mill/uL (4.7-6.1)
[2020-09-24 15:25] LABS: CHLORIDE 103 mEq/L (98-107)
[2020-09-24 18:16] LABS: PLATELET ESTIMATE DECREASED
[2020-09-24] MEDS ORDERED: LIDOCAINE 2G PREMIX 500 ML IV PRN (20:45)
[2020-09-24] MEDS ORDERED: LIDOCAINE HCL 2% 5ML SYRINGE IV PRN (20:45)
[2020-09-24] MEDS: ATORVASTATIN CALCIUM 40MG TABLET PO SCH (21:47)
[2020-09-25] VITALS (79 sets, daily range): BP systolic 79–117; BP diastolic 48–84
[2020-09-25] MEDS: IPRATROPIUM/ALBUTEROL 0.5-3(2.5)MG/3ML NEB HHN SCH ×6 (00:42→20:25)
[2020-09-25] MEDS: ACETYLCYSTEINE 100MG/ML 10% VIAL 4ML INH SCH ×4 (00:43→20:25)
[2020-09-25] MEDS: DOPAMINE 400MG/250ML PREMIX 250 ML IV SCH ×2 (00:55→18:26)
[2020-09-25] MEDS: EPINEPHRINE 10 MG in SODIUM CHLORIDE 0.9% 240 ML IV PRN ×2 (03:04→11:34)
[2020-09-25 05:35] LABS: HEMATOCRIT. 36.1 % (42.0-52.0); HEMOGLOBIN. 11.9 g/dL (14.0-18.0); MEAN CORPUSCULAR VOLUME 90.8 fL (80.0-94.0); MEAN PLATELET VOLUME 11.8 fl (7.4-10.4); PLATELET 107 x1000/uL (130-400); RED BLOOD CELL COUNT 3.98 mill/uL (4.7-6.1); RED CELL DISTRIBUTION WIDTH 14.8 % (11.6-14.6)
[2020-09-25 05:44] LABS: CHLORIDE 101 mEq/L (98-107)
[2020-09-25 05:52] LABS: PHOSPHORUS 5.2 mg/dL (2.5-4.9)
[2020-09-25] MEDS: FUROSEMIDE IV SCH (06:22)
[2020-09-25] MEDS: SODIUM CHLORIDE 0.9% IV SCH (06:22)
[2020-09-25] MEDS ORDERED: DIGOXIN 500MCG/2ML AMP IV SCH (07:30)
[2020-09-25] MEDS: FAMOTIDINE 20MG TABLET PO SCH (08:15)
[2020-09-25] MEDS: DOCUSATE SODIUM 100MG CAPSULE PO SCH ×2 (08:15→16:29)
[2020-09-25] MEDS: CARVEDILOL 3.125 MG TABLET PO SCH (08:15)
[2020-09-25] MEDS: ASPIRIN 81MG TABLET PO SCH (08:15)
[2020-09-25] MEDS: INSULIN LISPRO 100 UNITS/ML SUBCUT SCH ×4 (08:20→20:58)
[2020-09-25] MEDS: BLOOD SUGAR DIAGNOSTIC STRIP TEST SCH ×4 (08:22→20:58)
[2020-09-25] MEDS: SODIUM BICARBONATE 100 MEQ in SODIUM CHLORIDE 0.45% 1,000 ML IV SCH (08:46)
[2020-09-25 08:52] LABS: BG CARBOXYHEMOGLOBIN 0.2 % (0.5-1.5); BG HCO3 ACT 24.7 mmol/L (22.0-26.0); BG METHEMOGLOBIN 0.1 % (0.0-1.5); BG OXYHEMOGLOBIN 94.7 % (94.0-97.0); BG PCO2 32.8 mmHg (35.0-45.0); BG PH 7.495 (7.350-7.450); BG PO2 75.4 mmHg (75.0-100.0); BG SAMPLE SITE RIGHT RADIAL; BG TOTAL HEMOGLOBIN 13.4 g/dL (12.0-18.0); BG VENT MODE MASK - BIPAP
[2020-09-25] MEDS: BACITRACIN 15GM TUBE TOP SCH ×2 (13:06→16:33)
[2020-09-25 14:34] LABS: NUCLEATED RED BLOOD CELLS 2 /100 WBC; PLATELET ESTIMATE DECREASED
[2020-09-25] MEDS ORDERED: LIDOCAINE HCL 2% 5ML SYRINGE IV NR (17:26)
[2020-09-25] MEDS: LIDOCAINE HCL 2% 5ML SYRINGE IV NR ×2 (17:26→20:14)
[2020-09-25] MEDS: METOCLOPRAMIDE HCL 10MG/2ML VIAL IV SCH (17:45)
[2020-09-25] MEDS ORDERED: MAGNESIUM 2 G PREMIX 50 ML IV NR (18:00)
[2020-09-25] MEDS: ATORVASTATIN CALCIUM 40MG TABLET PO SCH (20:32)
[2020-09-26] VITALS (118 sets, daily range): BP systolic 81–147; BP diastolic 47–137
[2020-09-26] MEDS: METOCLOPRAMIDE HCL 10MG/2ML VIAL IV SCH ×4 (00:03→18:25)
[2020-09-26] MEDS: IPRATROPIUM/ALBUTEROL 0.5-3(2.5)MG/3ML NEB HHN SCH ×6 (00:22→19:40)
[2020-09-26] MEDS: SODIUM CHLORIDE 0.9% IV SCH (01:11)
[2020-09-26] MEDS: FUROSEMIDE IV SCH (01:11)
[2020-09-26] MEDS: INSULIN LISPRO 100 UNITS/ML SUBCUT SCH ×4 (08:20→20:42)
[2020-09-26] MEDS: BLOOD SUGAR DIAGNOSTIC STRIP TEST SCH ×4 (08:29→20:41)
[2020-09-26] MEDS: ACETYLCYSTEINE 100MG/ML 10% VIAL 4ML INH SCH ×2 (08:36→16:25)
[2020-09-26] MEDS ORDERED: POTASSIUM CHLORIDE 20MEQ/PACKET PO SCH (09:00)
[2020-09-26] MEDS: FAMOTIDINE 20MG TABLET PO SCH (09:09)
[2020-09-26] MEDS: DOCUSATE SODIUM 100MG CAPSULE PO SCH ×2 (09:09→16:38)
[2020-09-26] MEDS: ASPIRIN 81MG TABLET PO SCH (09:09)
[2020-09-26] MEDS: BACITRACIN 15GM TUBE TOP SCH ×2 (09:09→16:38)
[2020-09-26 10:15] LABS: BG BASE EXCESS 7.2 mmol/L (-2.0-2.0); BG CARBOXYHEMOGLOBIN 0.1 % (0.5-1.5); BG DEOXYHEMOGLOBIN 0.8 % (0.0-5.0); BG FRACTION INSPIRED OXYGEN 70; BG HCO3 ACT 29.7 mmol/L (22.0-26.0); BG METHEMOGLOBIN 0.5 % (0.0-1.5); BG OXYGEN SATURATION 99.2 % (92.0-98.5); BG OXYHEMOGLOBIN 98.6 % (94.0-97.0); BG PCO2 35.2 mmHg (35.0-45.0); BG PH 7.544 (7.350-7.450); BG PO2 198.7 mmHg (75.0-100.0); BG SAMPLE SITE RIGHT BRACHIAL; BG TOTAL HEMOGLOBIN 16.5 g/dL (12.0-18.0); BG TOTAL RESPIRATORY RATE 21 b/min; BG VENT MODE MASK - BIPAP
[2020-09-26] MEDS: FUROSEMIDE 40MG/4ML VIAL IVP SCH ×2 (11:37→18:38)
[2020-09-26] MEDS: ACETAMINOPHEN 325MG TABLET PO PRN (11:57)
[2020-09-26 12:33] LABS: HEMATOCRIT. 45.9 % (42.0-52.0); HEMOGLOBIN. 15.1 g/dL (14.0-18.0); MEAN CORPUSCULAR HEMOGLOBIN 29.9 pg (28.0-32.0); MEAN CORPUSCULAR VOLUME 91.2 fL (80.0-94.0); MEAN PLATELET VOLUME 10.8 fl (7.4-10.4); PLATELET 134 x1000/uL (130-400); RED BLOOD CELL COUNT 5.04 mill/uL (4.7-6.1); RED CELL DISTRIBUTION WIDTH 14.7 % (11.6-14.6)
[2020-09-26] MEDS: ALBUMIN HUMAN 25GM/100ML (25%) IV SCH ×3 (13:11→18:26)
[2020-09-26] MEDS: DOPAMINE 400MG/250ML PREMIX 250 ML IV SCH (13:25)
[2020-09-26 14:24] LABS: PLATELET ESTIMATE NORMAL
[2020-09-26] MEDS: HEPARIN 5000 UNITS/ML VIAL SUBCUT SCH (18:25)
[2020-09-26] MEDS ORDERED: DIGOXIN 500MCG/2ML AMP IV NR (20:15)
[2020-09-26] MEDS: ATORVASTATIN CALCIUM 40MG TABLET PO SCH (20:41)
[2020-09-27] VITALS (90 sets, daily range): BP systolic 83–117; BP diastolic 54–80
[2020-09-27] MEDS: IPRATROPIUM/ALBUTEROL 0.5-3(2.5)MG/3ML NEB HHN SCH ×6 (00:01→21:01)
[2020-09-27] MEDS: ACETYLCYSTEINE 100MG/ML 10% VIAL 4ML INH SCH ×3 (00:01→16:22)
[2020-09-27] MEDS: METOCLOPRAMIDE HCL 10MG/2ML VIAL IV SCH ×4 (01:04→17:43)
[2020-09-27] MEDS ORDERED: POTASSIUM CHLORIDE 20MEQ/PACKET PO NR (02:00)
[2020-09-27] MEDS: FUROSEMIDE 40MG/4ML VIAL IVP SCH (04:04)
[2020-09-27 05:44] LABS: PHOSPHORUS 1.9 mg/dL (2.5-4.9)
[2020-09-27 05:48] LABS: HEMATOCRIT. 41.5 % (42.0-52.0); HEMOGLOBIN. 13.7 g/dL (14.0-18.0); MEAN PLATELET VOLUME 10.4 fl (7.4-10.4); PLATELET 139 x1000/uL (130-400); RED BLOOD CELL COUNT 4.56 mill/uL (4.7-6.1); RED CELL DISTRIBUTION WIDTH 14.6 % (11.6-14.6)
[2020-09-27] MEDS: HEPARIN 5000 UNITS/ML VIAL SUBCUT SCH ×3 (06:37→20:43)
[2020-09-27] MEDS: NOREPINEPHRINE 32 MG in DEXT 5% WATER 218 ML IV PRN (06:38)
[2020-09-27] MEDS: BLOOD SUGAR DIAGNOSTIC STRIP TEST SCH ×4 (08:08→21:00)
[2020-09-27] MEDS: INSULIN LISPRO 100 UNITS/ML SUBCUT SCH ×4 (08:08→21:00)
[2020-09-27 08:46] LABS: BG BASE EXCESS 2.8 mmol/L (-2.0-2.0); BG DEOXYHEMOGLOBIN 4.9 % (0.0-5.0); BG FRACTION INSPIRED OXYGEN 32; BG HCO3 ACT 26.3 mmol/L (22.0-26.0); BG METHEMOGLOBIN 0.1 % (0.0-1.5); BG OXYGEN SATURATION 95.1 % (92.0-98.5); BG PCO2 37.2 mmHg (35.0-45.0); BG PH 7.468 (7.350-7.450); BG SAMPLE SITE RIGHT BRACHIAL; BG TOTAL HEMOGLOBIN 14.4 g/dL (12.0-18.0); BG VENT MODE NASAL CANNULA
[2020-09-27] MEDS ORDERED: POTASSIUM PHOS,M-BASIC-D-BASIC 20 MMOL in DEXT 5% WATER 243.3333 ML IV SCH (09:00)
[2020-09-27] MEDS: ASPIRIN 81MG TABLET PO SCH (09:24)
[2020-09-27] MEDS: DOCUSATE SODIUM 100MG CAPSULE PO SCH ×2 (09:24→17:43)
[2020-09-27] MEDS: POTASSIUM CHLORIDE 20MEQ TABLET SR PO SCH (09:24)
[2020-09-27] MEDS: FAMOTIDINE 20MG TABLET PO SCH (09:24)
[2020-09-27] MEDS: BACITRACIN 15GM TUBE TOP SCH ×2 (09:24→17:44)
[2020-09-27 11:33] LABS: PLATELET ESTIMATE NORMAL
[2020-09-27] MEDS ORDERED: KCL 20MEQ/100ML PREMIX 100 ML IV SCH (12:00)
[2020-09-27] MEDS ORDERED: ALBUMIN HUMAN 25GM/100ML (25%) IV SCH (14:00)
[2020-09-27] MEDS: MIDODRINE HCL 5MG TABLET PO SCH (18:18)
[2020-09-27] MEDS ORDERED: VANCOMYCIN 1500MG in DEXTROSE 5% WATER 250ML IV NR (20:00)
[2020-09-27] MEDS: ATORVASTATIN CALCIUM 40MG TABLET PO SCH (20:44)
[2020-09-27] MEDS: ACETAMINOPHEN 325MG TABLET PO PRN (20:52)
[2020-09-28] VITALS (85 sets, daily range): BP systolic 85–112; BP diastolic 40–76
[2020-09-28] MEDS ORDERED: KCL 20MEQ/100ML PREMIX 100 ML IV NR
[2020-09-28] MEDS: METOCLOPRAMIDE HCL 10MG/2ML VIAL IV SCH ×4 (00:26→18:40)
[2020-09-28] MEDS: IPRATROPIUM/ALBUTEROL 0.5-3(2.5)MG/3ML NEB HHN SCH ×6 (00:31→21:18)
[2020-09-28 05:30] LABS: HEMATOCRIT. 38.2 % (42.0-52.0); HEMOGLOBIN. 12.6 g/dL (14.0-18.0); MEAN CORPUSCULAR HEMOGLOBIN 29.9 pg (28.0-32.0); MEAN CORPUSCULAR VOLUME 90.6 fL (80.0-94.0); MEAN PLATELET VOLUME 10.6 fl (7.4-10.4); PLATELET 169 x1000/uL (130-400); RED BLOOD CELL COUNT 4.22 mill/uL (4.7-6.1); RED CELL DISTRIBUTION WIDTH 14.8 % (11.6-14.6)
[2020-09-28 05:50] LABS: CHLORIDE 109 mEq/L (98-107)
[2020-09-28 05:57] LABS: PHOSPHORUS 2.2 mg/dL (2.5-4.9)
[2020-09-28] MEDS: INSULIN LISPRO 100 UNITS/ML SUBCUT SCH ×4 (07:25→21:00)
[2020-09-28] MEDS: BLOOD SUGAR DIAGNOSTIC STRIP TEST SCH ×4 (07:25→21:00)
[2020-09-28] MEDS: ALBUMIN HUMAN 25GM/100ML (25%) IV SCH ×4 (08:06→14:00)
[2020-09-28] MEDS: FUROSEMIDE 40MG/4ML VIAL IVP SCH (08:06)
[2020-09-28] MEDS: DOCUSATE SODIUM 100MG CAPSULE PO SCH ×2 (08:07→16:01)
[2020-09-28] MEDS: POTASSIUM CHLORIDE 20MEQ TABLET SR PO SCH ×2 (08:07→16:01)
[2020-09-28] MEDS: MIDODRINE HCL 5MG TABLET PO SCH ×4 (08:07→16:01)
[2020-09-28] MEDS: FAMOTIDINE 20MG TABLET PO SCH (08:07)
[2020-09-28] MEDS: ASPIRIN 81MG TABLET PO SCH (08:07)
[2020-09-28] MEDS: BACITRACIN 15GM TUBE TOP SCH ×2 (08:08→16:03)
[2020-09-28] MEDS ORDERED: POTASSIUM PHOS,M-BASIC-D-BASIC 20 MMOL in DEXT 5% WATER 243.3333 ML IV SCH (09:00)
[2020-09-28] MEDS: HEPARIN 5000 UNITS/ML VIAL SUBCUT SCH ×2 (09:06→22:13)
[2020-09-28] MEDS ORDERED: POTASSIUM PHOS,M-BASIC-D-BASIC 20 MMOL in DEXT 5% WATER 243.3333 ML IV ONE (09:30)
[2020-09-28] MEDS ORDERED: MAGNESIUM 2 G PREMIX 50 ML IV SCH (10:00)
[2020-09-28] MEDS ORDERED: LACTULOSE 20G/30ML UDC PO PRN (11:45)
[2020-09-28] MEDS: VANCOMYCIN 1250MG in DEXTROSE 5% WATER 250ML IV SCH (12:15)
[2020-09-28 15:58] LABS: PLATELET ESTIMATE NORMAL
[2020-09-28] MEDS: ATORVASTATIN CALCIUM 40MG TABLET PO SCH (22:13)
[2020-09-29] VITALS (40 sets, daily range): BP systolic 79–115; BP diastolic 34–80
[2020-09-29] MEDS: IPRATROPIUM/ALBUTEROL 0.5-3(2.5)MG/3ML NEB HHN SCH ×6 (00:40→21:40)
[2020-09-29] MEDS: METOCLOPRAMIDE HCL 10MG/2ML VIAL IV SCH ×4 (01:56→17:39)
[2020-09-29] MEDS: VANCOMYCIN 1250MG in DEXTROSE 5% WATER 250ML IV SCH (05:12)
[2020-09-29 06:58] LABS: HEMATOCRIT. 36.6 % (42.0-52.0); HEMOGLOBIN. 12.1 g/dL (14.0-18.0); MEAN CORPUSCULAR HEMOGLOBIN 30.1 pg (28.0-32.0); MEAN CORPUSCULAR VOLUME 90.9 fL (80.0-94.0); MEAN PLATELET VOLUME 10.8 fl (7.4-10.4); PLATELET 196 x1000/uL (130-400); RED BLOOD CELL COUNT 4.03 mill/uL (4.7-6.1); RED CELL DISTRIBUTION WIDTH 14.6 % (11.6-14.6)
[2020-09-29] MEDS: BLOOD SUGAR DIAGNOSTIC STRIP TEST SCH ×4 (07:50→21:32)
[2020-09-29 08:01] LABS: PHOSPHORUS 2.6 mg/dL (2.5-4.9)
[2020-09-29] MEDS: INSULIN LISPRO 100 UNITS/ML SUBCUT SCH ×4 (08:20→21:00)
[2020-09-29] MEDS: BACITRACIN 15GM TUBE TOP SCH ×2 (08:55→17:38)
[2020-09-29] MEDS: FUROSEMIDE 40MG/4ML VIAL IVP SCH (08:55)
[2020-09-29] MEDS: HEPARIN 5000 UNITS/ML VIAL SUBCUT SCH ×2 (08:55→21:32)
[2020-09-29] MEDS: POTASSIUM CHLORIDE 20MEQ TABLET SR PO SCH ×2 (08:56→17:39)
[2020-09-29] MEDS: DOCUSATE SODIUM 100MG CAPSULE PO SCH ×2 (08:56→17:38)
[2020-09-29] MEDS: MIDODRINE HCL 5MG TABLET PO SCH ×3 (08:56→17:39)
[2020-09-29] MEDS: ASPIRIN 81MG TABLET PO SCH (08:57)
[2020-09-29] MEDS: FAMOTIDINE 20MG TABLET PO SCH (08:57)
[2020-09-29 15:30] LABS: PLATELET ESTIMATE NORMAL
[2020-09-29] MEDS: ATORVASTATIN CALCIUM 40MG TABLET PO SCH (21:30)
[2020-09-30] VITALS (12 sets, daily range): BP systolic 96–112; BP diastolic 59–85
[2020-09-30] MEDS: IPRATROPIUM/ALBUTEROL 0.5-3(2.5)MG/3ML NEB HHN SCH ×6 (00:56→19:21)
[2020-09-30] MEDS: METOCLOPRAMIDE HCL 10MG/2ML VIAL IV SCH ×4 (02:56→17:19)
[2020-09-30 05:08] LABS: BG BASE EXCESS -0.7 mmol/L (-2.0-2.0); BG CARBOXYHEMOGLOBIN 0.7 % (0.5-1.5); BG DEOXYHEMOGLOBIN 5.6 % (0.0-5.0); BG FRACTION INSPIRED OXYGEN 40; BG HCO3 ACT 21.8 mmol/L (22.0-26.0); BG METHEMOGLOBIN 0.2 % (0.0-1.5); BG OXYGEN SATURATION 94.3 % (92.0-98.5); BG OXYHEMOGLOBIN 93.5 % (94.0-97.0); BG PH 7.479 (7.350-7.450); BG PO2 70.2 mmHg (75.0-100.0); BG SAMPLE SITE RIGHT BRACHIAL; BG TOTAL HEMOGLOBIN 13.2 g/dL (12.0-18.0); BG VENT MODE NASAL CANNULA
[2020-09-30] MEDS: BLOOD SUGAR DIAGNOSTIC STRIP TEST SCH ×4 (06:45→21:00)
[2020-09-30] MEDS: INSULIN LISPRO 100 UNITS/ML SUBCUT SCH ×4 (07:20→21:00)
[2020-09-30] MEDS: DOCUSATE SODIUM 100MG CAPSULE PO SCH ×2 (08:50→17:00)
[2020-09-30] MEDS: POTASSIUM CHLORIDE 20MEQ TABLET SR PO SCH (08:51)
[2020-09-30] MEDS: MIDODRINE HCL 5MG TABLET PO SCH ×3 (08:52→17:18)
[2020-09-30] MEDS: HEPARIN 5000 UNITS/ML VIAL SUBCUT SCH ×2 (08:52→22:25)
[2020-09-30] MEDS: BACITRACIN 15GM TUBE TOP SCH ×2 (08:54→17:16)
[2020-09-30] MEDS: ASPIRIN 81MG TABLET PO SCH (08:54)
[2020-09-30] MEDS: FAMOTIDINE 20MG TABLET PO SCH (08:54)
[2020-09-30 13:38] LABS: HEMATOCRIT. 36.9 % (42.0-52.0); HEMOGLOBIN. 12.1 g/dL (14.0-18.0); MEAN CORPUSCULAR HEMOGLOBIN 29.9 pg (28.0-32.0); MEAN CORPUSCULAR VOLUME 91.1 fL (80.0-94.0); MEAN PLATELET VOLUME 10.1 fl (7.4-10.4); PLATELET 253 x1000/uL (130-400); RED BLOOD CELL COUNT 4.05 mill/uL (4.7-6.1); RED CELL DISTRIBUTION WIDTH 15.4 % (11.6-14.6)
[2020-09-30 21:18] LABS: PLATELET ESTIMATE NORMAL
[2020-09-30] MEDS: ATORVASTATIN CALCIUM 40MG TABLET PO SCH (22:24)
[2020-09-30] MEDS ORDERED: VANCOMYCIN 1250MG in DEXTROSE 5% WATER 250ML IV NR (22:30)
[2020-10-01] VITALS (12 sets, daily range): BP systolic 94–151; BP diastolic 51–80
[2020-10-01] MEDS: IPRATROPIUM/ALBUTEROL 0.5-3(2.5)MG/3ML NEB HHN SCH ×7 (00:54→23:48)
[2020-10-01] MEDS: METOCLOPRAMIDE HCL 10MG/2ML VIAL IV SCH ×4 (00:57→17:18)
[2020-10-01] MEDS: BLOOD SUGAR DIAGNOSTIC STRIP TEST SCH ×4 (06:38→20:55)
[2020-10-01] MEDS: INSULIN LISPRO 100 UNITS/ML SUBCUT SCH ×4 (07:20→20:55)
[2020-10-01] MEDS ORDERED: FUROSEMIDE 100MG/10ML VIAL IVP NR (07:30)
[2020-10-01] MEDS: FAMOTIDINE 20MG TABLET PO SCH (08:52)
[2020-10-01] MEDS: MIDODRINE HCL 5MG TABLET PO SCH ×3 (08:52→17:16)
[2020-10-01] MEDS: ASPIRIN 81MG TABLET PO SCH (08:52)
[2020-10-01] MEDS: TAMSULOSIN HCL 0.4MG SR CAPSULE PO SCH ×3 (08:52→17:00)
[2020-10-01] MEDS: BACITRACIN 15GM TUBE TOP SCH ×2 (08:53→17:16)
[2020-10-01] MEDS: HEPARIN 5000 UNITS/ML VIAL SUBCUT SCH ×2 (08:54→21:43)
[2020-10-01] MEDS: DOCUSATE SODIUM 100MG CAPSULE PO SCH ×2 (09:00→17:00)
[2020-10-01] MEDS: ACETYLCYSTEINE 100MG/ML 10% VIAL 4ML INH SCH ×2 (12:21→20:49)
[2020-10-01] MEDS: ATORVASTATIN CALCIUM 40MG TABLET PO SCH (21:42)
[2020-10-02] VITALS (12 sets, daily range): BP systolic 90–113; BP diastolic 49–71
[2020-10-02] MEDS: METOCLOPRAMIDE HCL 10MG/2ML VIAL IV SCH ×5 (00:05→23:51)
[2020-10-02] MEDS: BLOOD SUGAR DIAGNOSTIC STRIP TEST SCH ×4 (06:19→20:42)
[2020-10-02] MEDS: INSULIN LISPRO 100 UNITS/ML SUBCUT SCH ×4 (07:20→20:42)
[2020-10-02] MEDS: IPRATROPIUM/ALBUTEROL 0.5-3(2.5)MG/3ML NEB HHN SCH ×4 (07:56→20:48)
[2020-10-02] MEDS: ACETYLCYSTEINE 100MG/ML 10% VIAL 4ML INH SCH ×2 (07:57→16:42)
[2020-10-02] MEDS: TAMSULOSIN HCL 0.4MG SR CAPSULE PO SCH ×2 (09:00→17:00)
[2020-10-02] MEDS: FUROSEMIDE 40MG/4ML VIAL IVP SCH (09:20)
[2020-10-02] MEDS: HEPARIN 5000 UNITS/ML VIAL SUBCUT SCH ×2 (09:20→23:51)
[2020-10-02] MEDS: FAMOTIDINE 20MG TABLET PO SCH (09:22)
[2020-10-02] MEDS: ASPIRIN 81MG TABLET PO SCH (09:22)
[2020-10-02] MEDS: MIDODRINE HCL 5MG TABLET PO SCH ×3 (09:22→17:11)
[2020-10-02] MEDS: DOCUSATE SODIUM 100MG CAPSULE PO SCH ×2 (09:23→17:11)
[2020-10-02] MEDS: BACITRACIN 15GM TUBE TOP SCH ×2 (09:23→17:11)
[2020-10-02 12:59] LABS: HEMATOCRIT. 34.7 % (42.0-52.0); HEMOGLOBIN. 11.4 g/dL (14.0-18.0); MEAN CORPUSCULAR HEMOGLOBIN 29.8 pg (28.0-32.0); MEAN CORPUSCULAR VOLUME 90.6 fL (80.0-94.0); MEAN PLATELET VOLUME 9.6 fl (7.4-10.4); PLATELET 252 x1000/uL (130-400); RED BLOOD CELL COUNT 3.83 mill/uL (4.7-6.1); RED CELL DISTRIBUTION WIDTH 14.7 % (11.6-14.6)
[2020-10-02] MEDS ORDERED: VANCOMYCIN 1250MG in DEXTROSE 5% WATER 250ML IV NR (15:30)
[2020-10-02] MEDS: ATORVASTATIN CALCIUM 40MG TABLET PO SCH (20:46)
[2020-10-03] VITALS (14 sets, daily range): BP systolic 88–136; BP diastolic 52–82
[2020-10-03] MEDS: ACETYLCYSTEINE 100MG/ML 10% VIAL 4ML INH SCH ×3 (00:53→16:31)
[2020-10-03] MEDS: IPRATROPIUM/ALBUTEROL 0.5-3(2.5)MG/3ML NEB HHN SCH ×6 (00:54→21:07)
[2020-10-03] MEDS: BLOOD SUGAR DIAGNOSTIC STRIP TEST SCH ×4 (05:54→20:21)
[2020-10-03] MEDS: METOCLOPRAMIDE HCL 10MG/2ML VIAL IV SCH ×4 (05:54→23:01)
[2020-10-03 06:42] LABS: HEMATOCRIT. 33.4 % (42.0-52.0); HEMOGLOBIN. 11.1 g/dL (14.0-18.0); MEAN CORPUSCULAR HEMOGLOBIN 29.9 pg (28.0-32.0); MEAN CORPUSCULAR VOLUME 90.2 fL (80.0-94.0); MEAN PLATELET VOLUME 9.9 fl (7.4-10.4); PLATELET 261 x1000/uL (130-400); RED CELL DISTRIBUTION WIDTH 14.9 % (11.6-14.6)
[2020-10-03] MEDS: INSULIN LISPRO 100 UNITS/ML SUBCUT SCH ×4 (07:34→20:21)
[2020-10-03] MEDS ORDERED: POTASSIUM CHLORIDE 20MEQ/PACKET PO SCH (08:15)
[2020-10-03] MEDS: HEPARIN 5000 UNITS/ML VIAL SUBCUT SCH ×2 (08:29→20:11)
[2020-10-03] MEDS: MIDODRINE HCL 5MG TABLET PO SCH ×3 (08:29→17:13)
[2020-10-03] MEDS: TAMSULOSIN HCL 0.4MG SR CAPSULE PO SCH ×2 (08:29→17:12)
[2020-10-03] MEDS: FUROSEMIDE 40MG/4ML VIAL IVP SCH (08:29)
[2020-10-03] MEDS: DOCUSATE SODIUM 100MG CAPSULE PO SCH ×2 (08:29→17:12)
[2020-10-03] MEDS: FAMOTIDINE 20MG TABLET PO SCH (08:29)
[2020-10-03] MEDS: BACITRACIN 15GM TUBE TOP SCH ×2 (08:30→17:12)
[2020-10-03] MEDS: ASPIRIN 81MG TABLET PO SCH (08:30)
[2020-10-03 11:33] LABS: PLATELET ESTIMATE NORMAL
[2020-10-03 14:31] LABS: PLATELET ESTIMATE NORMAL
[2020-10-03] MEDS: ATORVASTATIN CALCIUM 40MG TABLET PO SCH (20:11)
[2020-10-03] MEDS ORDERED: METOLAZONE 10MG TABLET PO SCH (20:45)
[2020-10-03] MEDS ORDERED: FUROSEMIDE 40MG/4ML VIAL IVP SCH (22:45)
[2020-10-04] VITALS (12 sets, daily range): BP systolic 93–106; BP diastolic 60–75
[2020-10-04] MEDS: ACETYLCYSTEINE 100MG/ML 10% VIAL 4ML INH SCH ×3 (00:48→16:00)
[2020-10-04] MEDS: IPRATROPIUM/ALBUTEROL 0.5-3(2.5)MG/3ML NEB HHN SCH ×6 (00:48→20:03)
[2020-10-04] MEDS: METOCLOPRAMIDE HCL 10MG/2ML VIAL IV SCH ×3 (06:52→17:41)
[2020-10-04] MEDS: BLOOD SUGAR DIAGNOSTIC STRIP TEST SCH ×4 (06:58→20:29)
[2020-10-04 07:01] LABS: BASOPHILS % 1.3 % (0.0-2.0); EOSINOPHILS % 0.5 % (0.0-5.0); HEMATOCRIT. 33.4 % (42.0-52.0); LYMPHOCYTES % 9.1 % (20.0-50.0); MEAN CORPUSCULAR HEMOGLOBIN 29.8 pg (28.0-32.0); MEAN PLATELET VOLUME 10.5 fl (7.4-10.4); MONOCYTES % 8.9 % (2.0-8.0); NEUTROPHILS % 80.2 % (40.0-76.0); PLATELET 229 x1000/uL (130-400); RED BLOOD CELL COUNT 3.71 mill/uL (4.7-6.1)
[2020-10-04] MEDS: INSULIN LISPRO 100 UNITS/ML SUBCUT SCH ×4 (07:20→20:29)
[2020-10-04] MEDS: BACITRACIN 15GM TUBE TOP SCH ×2 (09:00→16:23)
[2020-10-04] MEDS: DOCUSATE SODIUM 100MG CAPSULE PO SCH ×2 (09:09→16:23)
[2020-10-04] MEDS: ASPIRIN 81MG TABLET PO SCH (09:09)
[2020-10-04] MEDS: HEPARIN 5000 UNITS/ML VIAL SUBCUT SCH ×2 (09:11→20:22)
[2020-10-04] MEDS: MIDODRINE HCL 5MG TABLET PO SCH ×3 (09:12→16:22)
[2020-10-04] MEDS: TAMSULOSIN HCL 0.4MG SR CAPSULE PO SCH ×2 (09:12→16:22)
[2020-10-04] MEDS: FAMOTIDINE 20MG TABLET PO SCH (09:12)
[2020-10-04] MEDS ORDERED: VANCOMYCIN 1 G PREMIX 200 ML IV SCH (10:30)
[2020-10-04] MEDS ORDERED: POTASSIUM CHLORIDE 20MEQ TABLET SR PO NR (10:45)
[2020-10-04] MEDS: FUROSEMIDE 40MG/4ML VIAL IVP SCH (10:49)
[2020-10-04] MEDS: ATORVASTATIN CALCIUM 40MG TABLET PO SCH (20:22)
[2020-10-05] VITALS (14 sets, daily range): BP systolic 90–107; BP diastolic 50–74
[2020-10-05] MEDS: ACETYLCYSTEINE 100MG/ML 10% VIAL 4ML INH SCH (00:28)
[2020-10-05] MEDS: IPRATROPIUM/ALBUTEROL 0.5-3(2.5)MG/3ML NEB HHN SCH ×4 (00:29→21:18)
[2020-10-05] MEDS: METOCLOPRAMIDE HCL 10MG/2ML VIAL IV SCH ×5 (05:58→23:00)
[2020-10-05] MEDS: BLOOD SUGAR DIAGNOSTIC STRIP TEST SCH ×4 (06:03→20:57)
[2020-10-05 06:29] LABS: BASOPHILS % 0.6 % (0.0-2.0); EOSINOPHILS % 0.9 % (0.0-5.0); HEMATOCRIT. 32.8 % (42.0-52.0); LYMPHOCYTES % 9.8 % (20.0-50.0); MEAN CORPUSCULAR HEMOGLOBIN 29.9 pg (28.0-32.0); MEAN CORPUSCULAR VOLUME 89.5 fL (80.0-94.0); MEAN PLATELET VOLUME 10.5 fl (7.4-10.4); MONOCYTES % 9.8 % (2.0-8.0); NEUTROPHILS % 78.9 % (40.0-76.0); PLATELET 237 x1000/uL (130-400); RED BLOOD CELL COUNT 3.66 mill/uL (4.7-6.1); RED CELL DISTRIBUTION WIDTH 14.7 % (11.6-14.6)
[2020-10-05] MEDS: INSULIN LISPRO 100 UNITS/ML SUBCUT SCH ×4 (07:08→20:57)
[2020-10-05] MEDS: DOCUSATE SODIUM 100MG CAPSULE PO SCH ×2 (08:58→16:20)
[2020-10-05] MEDS: ASPIRIN 81MG TABLET PO SCH (08:59)
[2020-10-05] MEDS: MIDODRINE HCL 5MG TABLET PO SCH ×3 (08:59→16:20)
[2020-10-05] MEDS: TAMSULOSIN HCL 0.4MG SR CAPSULE PO SCH ×2 (09:00→16:20)
[2020-10-05] MEDS: BACITRACIN 15GM TUBE TOP SCH ×2 (09:00→16:20)
[2020-10-05] MEDS: FAMOTIDINE 20MG TABLET PO SCH (09:00)
[2020-10-05] MEDS: HEPARIN 5000 UNITS/ML VIAL SUBCUT SCH ×2 (09:01→20:09)
[2020-10-05] MEDS: FUROSEMIDE 40MG/4ML VIAL IVP SCH (09:30)
[2020-10-05] MEDS ORDERED: POTASSIUM CHLORIDE 20MEQ TABLET SR PO NR (09:30)
[2020-10-05] MEDS: ATORVASTATIN CALCIUM 40MG TABLET PO SCH (20:09)
[2020-10-06] VITALS (13 sets, daily range): BP systolic 89–109; BP diastolic 50–74
[2020-10-06] MEDS: ACETYLCYSTEINE 100MG/ML 10% VIAL 4ML INH SCH ×3 (00:42→21:49)
[2020-10-06] MEDS: IPRATROPIUM/ALBUTEROL 0.5-3(2.5)MG/3ML NEB HHN SCH ×6 (00:42→21:49)
[2020-10-06] MEDS: BLOOD SUGAR DIAGNOSTIC STRIP TEST SCH ×4 (05:59→20:40)
[2020-10-06] MEDS: METOCLOPRAMIDE HCL 10MG/2ML VIAL IV SCH ×3 (06:05→17:12)
[2020-10-06] MEDS: INSULIN LISPRO 100 UNITS/ML SUBCUT SCH ×4 (07:20→20:41)
[2020-10-06] MEDS: FUROSEMIDE 40MG/4ML VIAL IVP SCH (08:50)
[2020-10-06] MEDS: TAMSULOSIN HCL 0.4MG SR CAPSULE PO SCH ×2 (08:50→17:11)
[2020-10-06] MEDS: MIDODRINE HCL 5MG TABLET PO SCH ×3 (08:50→17:12)
[2020-10-06] MEDS: DOCUSATE SODIUM 100MG CAPSULE PO SCH ×2 (08:50→17:11)
[2020-10-06] MEDS: HEPARIN 5000 UNITS/ML VIAL SUBCUT SCH ×2 (08:50→20:33)
[2020-10-06] MEDS: FAMOTIDINE 20MG TABLET PO SCH (08:50)
[2020-10-06] MEDS: ASPIRIN 81MG TABLET PO SCH (08:50)
[2020-10-06] MEDS: BACITRACIN 15GM TUBE TOP SCH ×2 (08:52→17:12)
[2020-10-06 10:08] LABS: BASOPHILS % 0.5 % (0.0-2.0); EOSINOPHILS % 0.6 % (0.0-5.0); HEMATOCRIT. 34.4 % (42.0-52.0); HEMOGLOBIN. 11.2 g/dL (14.0-18.0); LYMPHOCYTES % 9.3 % (20.0-50.0); MEAN CORPUSCULAR HEMOGLOBIN 29.8 pg (28.0-32.0); MEAN CORPUSCULAR VOLUME 91.2 fL (80.0-94.0); MEAN PLATELET VOLUME 9.4 fl (7.4-10.4); MONOCYTES % 8.5 % (2.0-8.0); NEUTROPHILS % 81.1 % (40.0-76.0); PLATELET 287 x1000/uL (130-400); RED BLOOD CELL COUNT 3.78 mill/uL (4.7-6.1)
[2020-10-06] MEDS ORDERED: POTASSIUM CHLORIDE 20MEQ TABLET SR PO NR (10:30)
[2020-10-06] MEDS ORDERED: MAGNESIUM 2 G PREMIX 50 ML IV NR (16:00)
[2020-10-06] MEDS: ATORVASTATIN CALCIUM 40MG TABLET PO SCH (20:33)
[2020-10-07] VITALS (8 sets, daily range): BP systolic 89–114; BP diastolic 59–79
[2020-10-07] MEDS: METOCLOPRAMIDE HCL 10MG/2ML VIAL IV SCH ×4 (00:43→17:40)
[2020-10-07] MEDS: IPRATROPIUM/ALBUTEROL 0.5-3(2.5)MG/3ML NEB HHN SCH ×5 (01:13→16:40)
[2020-10-07] MEDS: BLOOD SUGAR DIAGNOSTIC STRIP TEST SCH ×3 (06:09→16:50)
[2020-10-07] MEDS: INSULIN LISPRO 100 UNITS/ML SUBCUT SCH ×3 (07:20→17:20)
[2020-10-07] MEDS: DOCUSATE SODIUM 100MG CAPSULE PO SCH ×2 (09:00→17:43)
[2020-10-07] MEDS: MIDODRINE HCL 5MG TABLET PO SCH ×3 (09:00→17:43)
[2020-10-07] MEDS: TAMSULOSIN HCL 0.4MG SR CAPSULE PO SCH ×2 (09:00→17:43)
[2020-10-07] MEDS: FUROSEMIDE 40MG/4ML VIAL IVP SCH (09:01)
[2020-10-07] MEDS: ASPIRIN 81MG TABLET PO SCH (09:01)
[2020-10-07] MEDS: HEPARIN 5000 UNITS/ML VIAL SUBCUT SCH (09:01)
[2020-10-07] MEDS: FAMOTIDINE 20MG TABLET PO SCH (09:01)
[2020-10-07] MEDS: BACITRACIN 15GM TUBE TOP SCH ×2 (09:04→17:43)
[2020-10-07 10:32] LABS: BASOPHILS % 0.8 % (0.0-2.0); EOSINOPHILS % 0.7 % (0.0-5.0); HEMATOCRIT. 34.1 % (42.0-52.0); HEMOGLOBIN. 11.5 g/dL (14.0-18.0); LYMPHOCYTES % 8.5 % (20.0-50.0); MEAN CORPUSCULAR HEMOGLOBIN 30.2 pg (28.0-32.0); MEAN CORPUSCULAR VOLUME 89.6 fL (80.0-94.0); MEAN PLATELET VOLUME 9.7 fl (7.4-10.4); MONOCYTES % 7.2 % (2.0-8.0); NEUTROPHILS % 82.8 % (40.0-76.0); PLATELET 315 x1000/uL (130-400); RED CELL DISTRIBUTION WIDTH 14.5 % (11.6-14.6)
[2020-10-07] MEDS ORDERED: POTASSIUM CHLORIDE 20MEQ TABLET SR PO SCH (13:00)
== END 2020-10-07 19:00 | disposition home health service (06) | DRG 165 ==
LOC: ER 13:55 → EDBEDREQ 18:49 → EDBEDREQTM 18:49 → ENRESERV 20:41 → 8WST 22:15 → CVICU 09-17 01:45 → 3WST 09-29 15:53
PROVIDERS: ADMIT Hospitalist; ATTEND Hospitalist
PROC: 5A02210 Assistance with Cardiac Output using Balloon Pump, Continuous (ICD-10-PCS; 2020-09-17)
PROC: 4A023N7 Measurement of Cardiac Sampling and Pressure, Left Heart, Percutaneous Approach (ICD-10-PCS; 2020-09-17)
PROC: B2111ZZ Fluoroscopy of Multiple Coronary Arteries using Low Osmolar Contrast (ICD-10-PCS; 2020-09-17)
PROC: B2151ZZ Fluoroscopy of Left Heart using Low Osmolar Contrast (ICD-10-PCS; 2020-09-17)
PROC: B4101ZZ Fluoroscopy of Abdominal Aorta using Low Osmolar Contrast (ICD-10-PCS; 2020-09-17)
PROC: B3101ZZ Fluoroscopy of Thoracic Aorta using Low Osmolar Contrast (ICD-10-PCS; 2020-09-17)
PROC: 02100Z8 Bypass Coronary Artery, One Artery from Right Internal Mammary, Open Approach (ICD-10-PCS; principal; 2020-09-21)
PROC: 02100Z9 Bypass Coronary Artery, One Artery from Left Internal Mammary, Open Approach (ICD-10-PCS; 2020-09-21)
PROC: 06BQ4ZZ Excision of Left Saphenous Vein, Percutaneous Endoscopic Approach (ICD-10-PCS; 2020-09-21)
PROC: 021109W Bypass Coronary Artery, Two Arteries from Aorta with Autologous Venous Tissue, Open Approach (ICD-10-PCS; 2020-09-21)
PROC: 02100Z3 Bypass Coronary Artery, One Artery from Coronary Artery, Open Approach (ICD-10-PCS; 2020-09-21)
PROC: 30233N1 Transfusion of Nonautologous Red Blood Cells into Peripheral Vein, Percutaneous Approach (ICD-10-PCS; 2020-09-23)
PROC: 06HY33Z Insertion of Infusion Device into Lower Vein, Percutaneous Approach (ICD-10-PCS; 2020-09-24)
PROC: B54CZZA Ultrasonography of Left Lower Extremity Veins, Guidance (ICD-10-PCS; 2020-09-24)
PROC: 5A12012 Performance of Cardiac Output, Single, Manual (ICD-10-PCS; 2020-09-24)
PROC: 5A09357 Assistance with Respiratory Ventilation, Less than 24 Consecutive Hours, Continuous Positive Airway Pressure (ICD-10-PCS; 2020-09-24)
PROC: 5A09357 Assistance with Respiratory Ventilation, Less than 24 Consecutive Hours, Continuous Positive Airway Pressure (ICD-10-PCS; 2020-09-25)
PROC: 5A09357 Assistance with Respiratory Ventilation, Less than 24 Consecutive Hours, Continuous Positive Airway Pressure (ICD-10-PCS; 2020-09-26)
PROC: 5A09357 Assistance with Respiratory Ventilation, Less than 24 Consecutive Hours, Continuous Positive Airway Pressure (ICD-10-PCS; 2020-09-27)
PROC: 5A1D70Z Performance of Urinary Filtration, Intermittent, Less than 6 Hours Per Day (ICD-10-PCS; 2020-10-01)
DX: I21.3 ST elevation (STEMI) myocardial infarction of unspecified site (principal); J96.01 Acute respiratory failure with hypoxia; K72.00 Acute and subacute hepatic failure without coma; N17.0 Acute kidney failure with tubular necrosis; R57.9 Shock, unspecified; E87.1 Hypo-osmolality and hyponatremia; D69.6 Thrombocytopenia, unspecified; I25.10 Atherosclerotic heart disease of native coronary artery without angina pectoris; I46.9 Cardiac arrest, cause unspecified; I50.22 Chronic systolic (congestive) heart failure; I11.0 Hypertensive heart disease with heart failure; K56.7 Ileus, unspecified; I47.2 Ventricular tachycardia; E87.2 Acidosis; E87.5 Hyperkalemia; I25.5 Ischemic cardiomyopathy; I49.3 Ventricular premature depolarization; E78.5 Hyperlipidemia, unspecified; E87.6 Hypokalemia; I48.0 Paroxysmal atrial fibrillation; L03.113 Cellulitis of right upper limb; M62.82 Rhabdomyolysis; Z66 Do not resuscitate; D62 Acute posthemorrhagic anemia; Z20.822 Contact with and (suspected) exposure to COVID-19; I69.354 Hemiplegia and hemiparesis following cerebral infarction affecting left non-dominant side; I25.2 Old myocardial infarction; Z99.2 Dependence on renal dialysis
CPT/HCPCS: 33967; 36415; 36556; 36600; 71045; 74018; 74176; 76770; 76937; 80048; 80053; 80061; 80202; 81003; 82310; 82375; 82550; 82805; 82962; 83036; 83735; 84100; 84132; 84450; 84460; 84484; 85014; 85018; 85025; 86705; 86709; 86803; 86850; 86900; 86920; 87340; 87426; 92610; 93005; 93306; 93458; 93880; 93970; 93971; 94618; 94640; 94660; 94667; 97110; 97116; 97162; 97164; 97167; 97530; 99291; C1725; C1729; C1751; C1758; C1769; C1887; C1893; C9113; J0282; J0690; J1100; J1160; J1170; J1265; J1644; J1650; J1815; J1885; J1940; J2250; J2270; J2405; J2440; J2720; J2765; J3010; J3370; J3475; J3480; J3490; J7040; J7050; J7060; J7608; L1830; L3908; P9016; P9041; P9047; Q9967

== ENCOUNTER 2020-11-06 13:19 | Inpatient (IN) | payer MEDICAID ==
[~2020-11-06] VITALS: Ht 160 cm; Wt 68.5 kg
[2020-11-06 17:47] LABS: EOSINOPHILS % 1.2 % (0.0-5.0); HEMATOCRIT. 34.2 % (42.0-52.0); HEMOGLOBIN. 11.5 g/dL (14.0-18.0); LYMPHOCYTES % 24.7 % (20.0-50.0); MEAN CORPUSCULAR HEMOGLOBIN 29.8 pg (28.0-32.0); MEAN CORPUSCULAR VOLUME 88.6 fL (80.0-94.0); MEAN PLATELET VOLUME 9.5 fl (7.4-10.4); MONOCYTES % 10.4 % (2.0-8.0); NEUTROPHILS % 62.7 % (40.0-76.0); PLATELET 278 x1000/uL (130-400); RED BLOOD CELL COUNT 3.86 mill/uL (4.7-6.1); RED CELL DISTRIBUTION WIDTH 17.1 % (11.6-14.6)
[2020-11-06] MEDS: AMPICILLIN SOD/SULBACTAM NA 3 G in SODIUM CHLORIDE 0.9% 100 ML IV SCH ×2 (17:49→23:22)
[2020-11-06 17:52] LABS: CHLORIDE 102 mEq/L (98-107)
[2020-11-06] MEDS ORDERED: DOCUSATE SODIUM 100MG CAPSULE PO PRN (18:45)
[2020-11-06] MEDS ORDERED: ACETAMINOPHEN 325MG TABLET PO PRN ×2 (18:45)
[2020-11-06] MEDS ORDERED: ONDANSETRON HCL 4MG/2ML INJ IV PRN (18:45)
[2020-11-06] MEDS ORDERED: IPRATROPIUM/ALBUTEROL 0.5-3(2.5)MG/3ML NEB HHN PRN (18:45)
[2020-11-06] MEDS ORDERED: CLONIDINE 0.1MG TABLET PO PRN (18:45)
[2020-11-06] MEDS ORDERED: HYDROCODONE/ACETAMINOPHEN 5/325MG TABLET PO PRN (18:45)
[2020-11-06] MEDS ORDERED: LORAZEPAM 0.5MG TABLET PO PRN (18:45)
[2020-11-06] MEDS ORDERED: PIPERACILLIN/TAZ 3.375G PREMIX 50 ML IV NR (19:00)
[2020-11-06] MEDS ORDERED: VANCOMYCIN 1500MG in DEXTROSE 5% WATER 250ML IV NR (20:00)
[2020-11-07] VITALS: BP 108/75
[2020-11-07 02:42] VITALS: BP 108/75
[2020-11-07 04:00] VITALS: BP 102/62
[2020-11-07 06:49] LABS: BASOPHILS % 1.4 % (0.0-2.0); EOSINOPHILS % 1.1 % (0.0-5.0); HEMATOCRIT. 33.8 % (42.0-52.0); LYMPHOCYTES % 11.3 % (20.0-50.0); MEAN PLATELET VOLUME 9.3 fl (7.4-10.4); MONOCYTES % 8.2 % (2.0-8.0); PLATELET 210 x1000/uL (130-400); RED BLOOD CELL COUNT 3.79 mill/uL (4.7-6.1); RED CELL DISTRIBUTION WIDTH 17.4 % (11.6-14.6)
[2020-11-07] MEDS ORDERED: DOCU240C26 PO (07:22)
[2020-11-07] MEDS ORDERED: ATOR-2 PO (07:24)
[2020-11-07] MEDS ORDERED: ASPI-986 PO (07:25)
[2020-11-07] MEDS ORDERED: FAMO20TA8 PO (07:33)
[2020-11-07] MEDS ORDERED: ALD2525 MT (07:35)
[2020-11-07] MEDS ORDERED: ALD2525 PO (07:35)
[2020-11-07 08:00] VITALS: BP 86/59
[2020-11-07] MEDS ORDERED: PIPERACILLIN/TAZOBACTAM 3.375 G in DEXTROSE 5% WATER 50 ML IV SCH (09:00)
[2020-11-07] MEDS: ASPIRIN 81MG TABLET PO SCH (12:44)
[2020-11-07] MEDS: FAMOTIDINE 20MG TABLET PO SCH (12:44)
[2020-11-07 20:00] VITALS: BP 115/78
[2020-11-07] MEDS ORDERED: VANCOMYCIN 1 G PREMIX 200 ML IV SCH (20:00)
[2020-11-07] MEDS ORDERED: NALOXONE HCL 0.4MG/ML VIAL IV PRN (21:45)
[2020-11-07] MEDS: ATORVASTATIN CALCIUM 40MG TABLET PO SCH (21:55)
[2020-11-08] VITALS: BP 127/70
[2020-11-08 04:00] VITALS: BP 147/67
[2020-11-08] MEDS: ASPIRIN 81MG TABLET PO SCH (14:03)
[2020-11-08] MEDS: FAMOTIDINE 20MG TABLET PO SCH (14:03)
[2020-11-08 20:00] VITALS: BP 94/66
[2020-11-08] MEDS: ATORVASTATIN CALCIUM 40MG TABLET PO SCH (21:30)
[2020-11-09] VITALS: BP 101/71
[2020-11-09 04:00] VITALS: BP 100/71
[2020-11-09 08:00] VITALS: BP 96/69
[2020-11-09 12:00] VITALS: BP 91/65
[2020-11-09 12:37] VITALS: BP 91/65
[2020-11-09] MEDS: ASPIRIN 81MG TABLET PO SCH (14:35)
[2020-11-09] MEDS: FAMOTIDINE 20MG TABLET PO SCH (14:35)
[2020-11-09 16:00] VITALS: BP 91/64
== END 2020-11-09 17:13 | disposition home or self-care (01) | DRG 813 ==
LOC: ER 13:19 → MICUSO 18:25 → 6EST 23:12
PROVIDERS: ADMIT Internal Medicine; ATTEND Internal Medicine
DX: T81.89XA Other complications of procedures, not elsewhere classified, initial encounter (principal); I21.3 ST elevation (STEMI) myocardial infarction of unspecified site; T81.41XA Infection following a procedure, superficial incisional surgical site, initial encounter; I69.354 Hemiplegia and hemiparesis following cerebral infarction affecting left non-dominant side; I50.22 Chronic systolic (congestive) heart failure; I11.0 Hypertensive heart disease with heart failure; Z95.1 Presence of aortocoronary bypass graft; E78.5 Hyperlipidemia, unspecified; I25.10 Atherosclerotic heart disease of native coronary artery without angina pectoris; I25.2 Old myocardial infarction; Y83.8 Other surgical procedures as the cause of abnormal reaction of the patient, or of later complication, without mention of misadventure at the time of the procedure; Y92.89 Other specified places as the place of occurrence of the external cause; R47.1 Dysarthria and anarthria; Z87.448 Personal history of other diseases of urinary system
CPT/HCPCS: 36415; 80048; 80053; 85025; 99285; J0295; J2543; J3370; J7050; J7060

== ENCOUNTER 2021-01-04 08:07 | Inpatient (IN) | payer MEDICAID, OTHER ==
[~2021-01-04] VITALS: Ht 160 cm; Wt 95.7 kg
[~2021-01-04 08:07] MED LIST: ALD2525 MT; ALD2525 PO; ASPI-986 PO; ATOR-2 PO; DOCU240C26 PO; FAMO20TA8 PO
[2021-01-04] MEDS ORDERED: PANTOPRAZOLE SODIUM 40 MG/VIAL IV STA (08:26)
[2021-01-04] MEDS ORDERED: SODIUM CHLORIDE 0.9% 1,000 ML IV ONE (08:30)
[2021-01-04 09:03] LABS: BASOPHILS % 0.6 % (0.0-2.0); EOSINOPHILS % 0.6 % (0.0-5.0); HEMATOCRIT. 32.9 % (42.0-52.0); HEMOGLOBIN. 10.5 g/dL (14.0-18.0); LYMPHOCYTES % 12.2 % (20.0-50.0); MEAN CORPUSCULAR HEMOGLOBIN 28.7 pg (28.0-32.0); MEAN CORPUSCULAR VOLUME 89.8 fL (80.0-94.0); MEAN PLATELET VOLUME 8.3 fl (7.4-10.4); MONOCYTES % 7.8 % (2.0-8.0); NEUTROPHILS % 78.8 % (40.0-76.0); PLATELET 322 x1000/uL (130-400); RED BLOOD CELL COUNT 3.67 mill/uL (4.7-6.1)
[2021-01-04 09:08] LABS: CHLORIDE 106 mEq/L (98-107)
[2021-01-04 10:05] LABS: CLARITY URINE CLEAR (CLEAR); COLOR URINE DARK YELLOW (YELLOW); KETONES URINE TRACE (NEGATIVE); LEUKOCYTE ESTERASE URINE TRACE (NEGATIVE); NITRITE URINE NEGATIVE (NEGATIVE); OCCULT BLOOD URINE NEGATIVE (NEGATIVE); PH URINE 5.5 (4.5-8.0); PROTEIN URINE 1+ (NEGATIVE)
[2021-01-04] MEDS ORDERED: IOHEXOL-300 100 ML BOTTLE ONE (11:09)
[2021-01-04] MEDS ORDERED: FUROSEMIDE 40MG/4ML VIAL IVP ONE (11:30)
[2021-01-04] MEDS ORDERED: MORPHINE SULFATE 4 MG/ML CPJ (NOT FOR IM USE) IV ONE (11:30)
[2021-01-04] MEDS ORDERED: ASPIRIN 81MG TABLET PO ONE (13:00)
[2021-01-04] MEDS ORDERED: HYDROCODONE/ACETAMINOPHEN 5/325MG TABLET PO PRN (14:30)
[2021-01-04] MEDS ORDERED: NALOXONE HCL 0.4MG/ML VIAL IV PRN (14:30)
[2021-01-04] MEDS ORDERED: ONDANSETRON HCL 4MG/2ML INJ IV PRN (14:30)
[2021-01-05] VITALS (7 sets, daily range): BP systolic 96–132; BP diastolic 59–95
[2021-01-05 07:56] LABS: BASOPHILS % 0.9 % (0.0-2.0); EOSINOPHILS % 0.7 % (0.0-5.0); HEMATOCRIT. 32.4 % (42.0-52.0); HEMOGLOBIN. 10.3 g/dL (14.0-18.0); LYMPHOCYTES % 9.5 % (20.0-50.0); MEAN CORPUSCULAR HEMOGLOBIN 28.7 pg (28.0-32.0); MEAN CORPUSCULAR VOLUME 90.6 fL (80.0-94.0); MEAN PLATELET VOLUME 8.7 fl (7.4-10.4); MONOCYTES % 10.5 % (2.0-8.0); NEUTROPHILS % 78.4 % (40.0-76.0); PLATELET 328 x1000/uL (130-400); RED BLOOD CELL COUNT 3.58 mill/uL (4.7-6.1); RED CELL DISTRIBUTION WIDTH 21.2 % (11.6-14.6)
[2021-01-05] MEDS ORDERED: INFLUENZA VACCINE 05/PF 0.5 ML SYRINGE IM ONE (11:00)
[2021-01-05] MEDS ORDERED: PNEUMOCOCCAL 23-VAL P-SAC VAC 0.5 ML IM ONE (11:00)
[2021-01-05] MEDS: FUROSEMIDE 40MG/4ML VIAL IVP SCH (11:25)
[2021-01-05] MEDS: TAMSULOSIN HCL 0.4MG SR CAPSULE PO SCH (12:29)
[2021-01-05] MEDS: PANTOPRAZOLE SODIUM 40 MG/VIAL IV SCH (21:44)
[2021-01-06] VITALS: BP 108/84
[2021-01-06 04:00] VITALS: BP 107/75
[2021-01-06 07:24] LABS: BASOPHILS % 0.4 % (0.0-2.0); EOSINOPHILS % 0.9 % (0.0-5.0); HEMATOCRIT. 33.1 % (42.0-52.0); HEMOGLOBIN. 10.8 g/dL (14.0-18.0); LYMPHOCYTES % 7.5 % (20.0-50.0); MEAN CORPUSCULAR VOLUME 88.9 fL (80.0-94.0); MEAN PLATELET VOLUME 8.5 fl (7.4-10.4); MONOCYTES % 7.8 % (2.0-8.0); NEUTROPHILS % 83.4 % (40.0-76.0); PLATELET 322 x1000/uL (130-400); RED BLOOD CELL COUNT 3.73 mill/uL (4.7-6.1); RED CELL DISTRIBUTION WIDTH 21.3 % (11.6-14.6)
[2021-01-06 07:32] LABS: INR 1.3; PROTHROMBIN TIME 13.8 sec (9.6-11.0)
[2021-01-06 08:00] VITALS: BP 104/74
[2021-01-06 08:01] LABS: HEPATITIS B SURFACE ANTIGEN NEGATIVE
[2021-01-06] MEDS: TAMSULOSIN HCL 0.4MG SR CAPSULE PO SCH (10:12)
[2021-01-06] MEDS: FUROSEMIDE 40MG/4ML VIAL IVP SCH (10:13)
[2021-01-06] MEDS: PANTOPRAZOLE SODIUM 40 MG/VIAL IV SCH ×2 (10:13→21:58)
[2021-01-06 12:00] VITALS: BP 106/76
[2021-01-06 16:00] VITALS: BP 111/74
[2021-01-06] MEDS ORDERED: IPRATROPIUM/ALBUTEROL 0.5-3(2.5)MG/3ML NEB HHN PRN (17:00)
[2021-01-06 20:00] VITALS: BP 106/63
[2021-01-07] VITALS: BP 102/63
[2021-01-07 04:00] VITALS: BP 107/69
[2021-01-07 06:44] LABS: BASOPHILS % 0.3 % (0.0-2.0); EOSINOPHILS % 2.1 % (0.0-5.0); HEMATOCRIT. 32.6 % (42.0-52.0); HEMOGLOBIN. 10.8 g/dL (14.0-18.0); MEAN CORPUSCULAR HEMOGLOBIN 29.2 pg (28.0-32.0); MEAN CORPUSCULAR VOLUME 88.4 fL (80.0-94.0); MEAN PLATELET VOLUME 8.2 fl (7.4-10.4); MONOCYTES % 7.8 % (2.0-8.0); NEUTROPHILS % 79.8 % (40.0-76.0); PLATELET 309 x1000/uL (130-400); RED BLOOD CELL COUNT 3.69 mill/uL (4.7-6.1); RED CELL DISTRIBUTION WIDTH 21.1 % (11.6-14.6)
[2021-01-07 06:53] LABS: INR 1.3; PROTHROMBIN TIME 13.3 sec (9.6-11.0)
[2021-01-07 08:00] VITALS: BP 103/75
[2021-01-07] MEDS: PANTOPRAZOLE SODIUM 40 MG/VIAL IV SCH (08:22)
[2021-01-07] MEDS: TAMSULOSIN HCL 0.4MG SR CAPSULE PO SCH (08:22)
[2021-01-07] MEDS: FUROSEMIDE 40MG/4ML VIAL IVP SCH (08:22)
[2021-01-07 12:00] VITALS: BP 107/62
[2021-01-07 15:38] LABS: BG BASE EXCESS 1.1 mmol/L (-2.0-2.0); BG CARBOXYHEMOGLOBIN 0.3 % (0.5-1.5); BG DEOXYHEMOGLOBIN 6.6 % (0.0-5.0); BG FRACTION INSPIRED OXYGEN 21; BG HCO3 ACT 24.9 mmol/L (22.0-26.0); BG METHEMOGLOBIN 0.3 % (0.0-1.5); BG OXYGEN SATURATION 93.4 % (92.0-98.5); BG OXYHEMOGLOBIN 92.8 % (94.0-97.0); BG PCO2 36.6 mmHg (35.0-45.0); BG PO2 69.1 mmHg (75.0-100.0); BG SAMPLE SITE RIGHT BRACHIAL; BG TOTAL HEMOGLOBIN 11.5 g/dL (12.0-18.0); BG VENT MODE ROOM AIR
[2021-01-07 16:00] VITALS: BP 99/54
[2021-01-07] MEDS ORDERED: FUROSEMIDE 40MG/4ML VIAL IVP SCH (17:15)
[2021-01-07 17:29] VITALS: BP 99/54
== END 2021-01-07 19:05 | disposition home or self-care (01) | DRG 241 ==
LOC: ER 08:07 → 8WST 11:15 → EDBEDREQTM 11:20 → EDBEDREQ 11:20 → ENRESERV 21:35
PROVIDERS: ADMIT Internal Medicine; ATTEND Internal Medicine
PROC: 0DB78ZX Excision of Stomach, Pylorus, Via Natural or Artificial Opening Endoscopic, Diagnostic (ICD-10-PCS; principal; 2021-01-06)
DX: K29.70 Gastritis, unspecified, without bleeding (principal); I50.33 Acute on chronic diastolic (congestive) heart failure; E44.0 Moderate protein-calorie malnutrition; N17.9 Acute kidney failure, unspecified; I69.354 Hemiplegia and hemiparesis following cerebral infarction affecting left non-dominant side; R16.0 Hepatomegaly, not elsewhere classified; R13.10 Dysphagia, unspecified; E78.5 Hyperlipidemia, unspecified; D64.9 Anemia, unspecified; N18.9 Chronic kidney disease, unspecified; N40.1 Benign prostatic hyperplasia with lower urinary tract symptoms; R74.01 Elevation of levels of liver transaminase levels; I13.0 Hypertensive heart and chronic kidney disease with heart failure and stage 1 through stage 4 chronic kidney disease, or unspecified chronic kidney disease; K43.9 Ventral hernia without obstruction or gangrene; K40.90 Unilateral inguinal hernia, without obstruction or gangrene, not specified as recurrent; R33.8 Other retention of urine; Z20.822 Contact with and (suspected) exposure to COVID-19; I25.5 Ischemic cardiomyopathy; K76.9 Liver disease, unspecified; I50.813 Acute on chronic right heart failure; K44.9 Diaphragmatic hernia without obstruction or gangrene; I25.10 Atherosclerotic heart disease of native coronary artery without angina pectoris; N28.1 Cyst of kidney, acquired; E78.00 Pure hypercholesterolemia, unspecified; I25.2 Old myocardial infarction; Z68.29 Body mass index [BMI] 29.0-29.9, adult; Z95.1 Presence of aortocoronary bypass graft; Z68.37 Body mass index [BMI] 37.0-37.9, adult; K80.20 Calculus of gallbladder without cholecystitis without obstruction
CPT/HCPCS: 36415; 36600; 71045; 74177; 76705; 78227; 80048; 80053; 80076; 81003; 82248; 82375; 82805; 82962; 83880; 84484; 85025; 86705; 86709; 86803; 87340; 87426; 88305; 88312; 88313; 90686; 90732; 93005; 99285; A9537; C9113; J1940; J2250; J2270; J2704; J7030; Q9967

== ENCOUNTER 2021-01-26 11:21 | Inpatient (IN) | payer OTHER ==
[~2021-01-26] VITALS: Ht 160 cm; Wt 80.3 kg
[2021-01-26 12:37] LABS: BASOPHILS % 0.6 % (0.0-2.0); EOSINOPHILS % 0.5 % (0.0-5.0); HEMATOCRIT. 35.9 % (42.0-52.0); HEMOGLOBIN. 11.1 g/dL (14.0-18.0); LYMPHOCYTES % 16.4 % (20.0-50.0); MEAN CORPUSCULAR HEMOGLOBIN 27.7 pg (28.0-32.0); MEAN CORPUSCULAR VOLUME 89.3 fL (80.0-94.0); MEAN PLATELET VOLUME 8.6 fl (7.4-10.4); MONOCYTES % 6.9 % (2.0-8.0); NEUTROPHILS % 75.6 % (40.0-76.0); PLATELET 256 x1000/uL (130-400); RED BLOOD CELL COUNT 4.02 mill/uL (4.7-6.1); RED CELL DISTRIBUTION WIDTH 21.5 % (11.6-14.6)
[2021-01-26 12:45] LABS: CHLORIDE 108 mEq/L (98-107)
[2021-01-26] MEDS: FUROSEMIDE 40MG/4ML VIAL IVP SCH ×2 (16:38→17:00)
[2021-01-26] MEDS ORDERED: DOCUSATE SODIUM 100MG CAPSULE PO PRN (18:30)
[2021-01-26] MEDS ORDERED: LORAZEPAM 0.5MG TABLET PO PRN (18:30)
[2021-01-26] MEDS ORDERED: ONDANSETRON HCL 4MG/2ML INJ IV PRN (18:30)
[2021-01-26] MEDS ORDERED: IPRATROPIUM/ALBUTEROL 0.5-3(2.5)MG/3ML NEB HHN PRN (18:30)
[2021-01-26] MEDS ORDERED: CLONIDINE 0.1MG TABLET PO PRN (18:30)
[2021-01-26] MEDS ORDERED: HYDROCODONE/ACETAMINOPHEN 5/325MG TABLET PO PRN (18:30)
[2021-01-26] MEDS ORDERED: ACETAMINOPHEN 325MG TABLET PO PRN ×2 (18:30)
[2021-01-26 22:00] VITALS: BP 122/84
[2021-01-26] MEDS: CARVEDILOL 3.125 MG TABLET PO SCH (23:34)
[2021-01-26] MEDS ORDERED: FOLI-43 MT (23:50)
[2021-01-26] MEDS ORDERED: SERT25TA74 MT (23:50)
[2021-01-26] MEDS ORDERED: ATOR80TA MT (23:50)
[2021-01-26] MEDS ORDERED: CARV3.1242 PO (23:50)
[2021-01-26] MEDS ORDERED: ASPI-1406 MT (23:50)
[2021-01-26] MEDS ORDERED: CLOP-31 PO (23:50)
[2021-01-27] VITALS: BP 192/104
[2021-01-27 04:00] VITALS: BP 114/67
[2021-01-27 06:19] LABS: BASOPHILS % 1.1 % (0.0-2.0); EOSINOPHILS % 2.2 % (0.0-5.0); HEMATOCRIT. 34.8 % (42.0-52.0); HEMOGLOBIN. 11.1 g/dL (14.0-18.0); LYMPHOCYTES % 14.9 % (20.0-50.0); MEAN CORPUSCULAR HEMOGLOBIN 28.1 pg (28.0-32.0); MEAN CORPUSCULAR VOLUME 87.9 fL (80.0-94.0); MEAN PLATELET VOLUME 8.6 fl (7.4-10.4); NEUTROPHILS % 73.8 % (40.0-76.0); PLATELET 244 x1000/uL (130-400); RED BLOOD CELL COUNT 3.95 mill/uL (4.7-6.1); RED CELL DISTRIBUTION WIDTH 20.9 % (11.6-14.6)
[2021-01-27 08:00] VITALS: BP 138/72
[2021-01-27] MEDS: ASPIRIN 81MG TABLET PO SCH (09:37)
[2021-01-27] MEDS: CARVEDILOL 3.125 MG TABLET PO SCH (09:37)
[2021-01-27] MEDS: CLOPIDOGREL 75MG TABLET PO SCH (09:38)
[2021-01-27] MEDS: FUROSEMIDE 40MG/4ML VIAL IVP SCH ×3 (10:20→17:20)
[2021-01-27] MEDS ORDERED: NALOXONE HCL 0.4MG/ML VIAL IV PRN (10:45)
[2021-01-27 12:00] VITALS: BP 98/54
[2021-01-27] MEDS: SERTRALINE HCL 25MG TABLET PO SCH (13:33)
[2021-01-27] MEDS: FOLIC ACID 1MG TABLET PO SCH (13:33)
[2021-01-27 16:00] VITALS: BP 114/70
[2021-01-27 20:00] VITALS: BP 100/69
[2021-01-27] MEDS: HEPARIN 5000 UNITS/ML VIAL SUBCUT SCH (20:26)
[2021-01-27] MEDS: CARVEDILOL 6.25 MG TABLET PO SCH (20:26)
[2021-01-27] MEDS ORDERED: GABA-529 MT ×2 (23:28→23:29)
[2021-01-28] VITALS: BP 108/60
[2021-01-28 04:00] VITALS: BP 111/79
[2021-01-28 08:00] VITALS: BP 109/81
[2021-01-28 08:30] LABS: BASOPHILS % 0.8 % (0.0-2.0); EOSINOPHILS % 1.8 % (0.0-5.0); HEMATOCRIT. 32.9 % (42.0-52.0); HEMOGLOBIN. 10.8 g/dL (14.0-18.0); LYMPHOCYTES % 15.2 % (20.0-50.0); MEAN CORPUSCULAR VOLUME 88.6 fL (80.0-94.0); MEAN PLATELET VOLUME 8.8 fl (7.4-10.4); NEUTROPHILS % 74.2 % (40.0-76.0); PLATELET 228 x1000/uL (130-400); RED BLOOD CELL COUNT 3.72 mill/uL (4.7-6.1)
[2021-01-28] MEDS: LOSARTAN POTASSIUM 25 MG TABLET PO SCH (09:00)
[2021-01-28] MEDS: CARVEDILOL 6.25 MG TABLET PO SCH ×2 (09:00→20:25)
[2021-01-28] MEDS: HEPARIN 5000 UNITS/ML VIAL SUBCUT SCH ×2 (09:32→20:26)
[2021-01-28] MEDS: ASPIRIN 81MG TABLET PO SCH (09:32)
[2021-01-28] MEDS: SERTRALINE HCL 25MG TABLET PO SCH (09:32)
[2021-01-28] MEDS: FOLIC ACID 1MG TABLET PO SCH (09:32)
[2021-01-28] MEDS: FUROSEMIDE 40MG/4ML VIAL IVP SCH ×3 (09:32→17:00)
[2021-01-28] MEDS: CLOPIDOGREL 75MG TABLET PO SCH (09:32)
[2021-01-28 12:00] VITALS: BP 106/72
[2021-01-28 16:00] VITALS: BP 123/91
[2021-01-28 20:00] VITALS: BP 127/72
[2021-01-28] MEDS ORDERED: POTASSIUM CHLORIDE 20MEQ/PACKET PO NR (21:00)
[2021-01-29] VITALS: BP 111/79
[2021-01-29 04:00] VITALS: BP 111/76
[2021-01-29 07:13] LABS: BASOPHILS % 0.9 % (0.0-2.0); EOSINOPHILS % 2.2 % (0.0-5.0); HEMATOCRIT. 34.7 % (42.0-52.0); HEMOGLOBIN. 11.1 g/dL (14.0-18.0); LYMPHOCYTES % 15.8 % (20.0-50.0); MEAN CORPUSCULAR VOLUME 87.8 fL (80.0-94.0); MEAN PLATELET VOLUME 8.8 fl (7.4-10.4); MONOCYTES % 8.2 % (2.0-8.0); NEUTROPHILS % 72.9 % (40.0-76.0); PLATELET 244 x1000/uL (130-400); RED BLOOD CELL COUNT 3.96 mill/uL (4.7-6.1); RED CELL DISTRIBUTION WIDTH 20.5 % (11.6-14.6)
[2021-01-29 08:00] VITALS: BP 121/70
[2021-01-29] MEDS: LOSARTAN POTASSIUM 25 MG TABLET PO SCH (09:00)
[2021-01-29] MEDS ORDERED: POTASSIUM CHLORIDE 20MEQ TABLET SR PO SCH (09:15)
[2021-01-29] MEDS: FUROSEMIDE 40MG/4ML VIAL IVP SCH ×3 (09:30→16:54)
[2021-01-29] MEDS: SERTRALINE HCL 25MG TABLET PO SCH (09:30)
[2021-01-29] MEDS: ASPIRIN 81MG TABLET PO SCH (09:31)
[2021-01-29] MEDS: CLOPIDOGREL 75MG TABLET PO SCH (09:31)
[2021-01-29] MEDS: HEPARIN 5000 UNITS/ML VIAL SUBCUT SCH (09:31)
[2021-01-29] MEDS: CARVEDILOL 6.25 MG TABLET PO SCH (09:31)
[2021-01-29] MEDS: FOLIC ACID 1MG TABLET PO SCH (09:31)
[2021-01-29 12:00] VITALS: BP 102/65
[2021-01-29] MEDS ORDERED: COR6 PO (12:11)
[2021-01-29] MEDS ORDERED: FURO40TA5 MT (12:11)
[2021-01-29] MEDS ORDERED: LOSA25TA3 PO (12:11)
[2021-01-29 15:36] VITALS: BP 108/73
[2021-01-29 16:00] VITALS: BP 108/73
== END 2021-01-29 20:20 | disposition home or self-care (01) | DRG 194 ==
LOC: ER 11:21 → 8WST 16:41 → EDBEDREQTM 16:47 → EDBEDREQ 16:47 → ENRESERV 20:07
PROVIDERS: ADMIT Internal Medicine; ATTEND Internal Medicine
DX: I13.0 Hypertensive heart and chronic kidney disease with heart failure and stage 1 through stage 4 chronic kidney disease, or unspecified chronic kidney disease (principal); I47.2 Ventricular tachycardia; E44.0 Moderate protein-calorie malnutrition; I27.21 Secondary pulmonary arterial hypertension; L89.156 Pressure-induced deep tissue damage of sacral region; I73.9 Peripheral vascular disease, unspecified; I50.43 Acute on chronic combined systolic (congestive) and diastolic (congestive) heart failure; Z86.74 Personal history of sudden cardiac arrest; Z95.1 Presence of aortocoronary bypass graft; I25.10 Atherosclerotic heart disease of native coronary artery without angina pectoris; I25.5 Ischemic cardiomyopathy; N18.9 Chronic kidney disease, unspecified; E78.5 Hyperlipidemia, unspecified; D64.9 Anemia, unspecified; R74.01 Elevation of levels of liver transaminase levels; R06.09 Other forms of dyspnea; R47.1 Dysarthria and anarthria; I69.354 Hemiplegia and hemiparesis following cerebral infarction affecting left non-dominant side; I25.2 Old myocardial infarction; Z79.82 Long term (current) use of aspirin; Z79.899 Other long term (current) drug therapy
CPT/HCPCS: 36415; 71045; 80048; 80053; 80076; 82040; 83735; 83880; 84134; 84145; 84484; 85025; 93005; 97161; 99285; J1644; J1940

== ENCOUNTER 2021-02-17 15:10 | Inpatient (IN) | payer OTHER ==
[~2021-02-17] VITALS: Ht 160 cm; Wt 70.3 kg
[~2021-02-17 15:10] MED LIST changes: -ALD2525 MT; -ALD2525 PO; +ASPI-1406 MT; -ASPI-986 PO; -ATOR-2 PO; +CLOP-31 PO; +COR6 PO; -DOCU240C26 PO; -FAMO20TA8 PO; +FOLI-43 MT; +FURO40TA5 MT; +LOSA25TA3 PO; +SERT25TA74 MT
[2021-02-17 22:43] LABS: HEMATOCRIT. 35.9 % (42.0-52.0); HEMOGLOBIN. 11.9 g/dL (14.0-18.0); MEAN CORPUSCULAR HEMOGLOBIN 28.5 pg (28.0-32.0); MEAN CORPUSCULAR VOLUME 86.1 fL (80.0-94.0); MEAN PLATELET VOLUME 8.8 fl (7.4-10.4); PLATELET 245 x1000/uL (130-400); RED BLOOD CELL COUNT 4.17 mill/uL (4.7-6.1)
[2021-02-17 22:49] LABS: CHLORIDE 102 mEq/L (98-107)
[2021-02-17 22:52] LABS: PLATELET ESTIMATE NORMAL
[2021-02-17 22:56] LABS: CLARITY URINE CLEAR (CLEAR); COLOR URINE DARK YELLOW (YELLOW); KETONES URINE TRACE (NEGATIVE); LEUKOCYTE ESTERASE URINE TRACE (NEGATIVE); NITRITE URINE NEGATIVE (NEGATIVE); OCCULT BLOOD URINE NEGATIVE (NEGATIVE); PROTEIN URINE TRACE (NEGATIVE); SPECIFIC GRAVITY URINE 1.025 (1.005-1.030)
[2021-02-18] MEDS ORDERED: FUROSEMIDE 100MG/10ML VIAL IVP ONE
[2021-02-18] MEDS ORDERED: ASPIRIN 325MG TABLET PO ONE
[2021-02-18] MEDS ORDERED: ACETAMINOPHEN 325MG TABLET PO PRN (09:00)
[2021-02-18] MEDS ORDERED: ONDANSETRON HCL 4MG/2ML INJ IV PRN (09:00)
[2021-02-18] MEDS ORDERED: IPRATROPIUM/ALBUTEROL 0.5-3(2.5)MG/3ML NEB HHN PRN (09:00)
[2021-02-18 09:57] VITALS: BP 137/98
[2021-02-18 12:00] VITALS: BP 137/98
[2021-02-18] MEDS: ENOXAPARIN 40MG/0.4ML SYR SUBCUT SCH (12:06)
[2021-02-18] MEDS: FUROSEMIDE 40MG/4ML VIAL IV SCH ×2 (12:06→18:09)
[2021-02-18] MEDS: AZITHROMYCIN 500 MG in DEXT 5% WATER 250 ML IV SCH (14:26)
[2021-02-18 16:00] VITALS: BP 139/95
[2021-02-18] MEDS: PREDNISONE 20MG TABLET PO SCH (18:09)
[2021-02-18 20:00] VITALS: BP 118/63
[2021-02-18] MEDS: IPRATROPIUM/ALBUTEROL 0.5-3(2.5)MG/3ML NEB HHN SCH (20:35)
[2021-02-18] MEDS: BUDESONIDE 0.5MG/2ML NEB HHN SCH (20:35)
[2021-02-19] VITALS: BP 121/78
[2021-02-19] MEDS: IPRATROPIUM/ALBUTEROL 0.5-3(2.5)MG/3ML NEB HHN SCH ×3 (01:09→21:30)
[2021-02-19 04:00] VITALS: BP 119/81
[2021-02-19] MEDS: FUROSEMIDE 40MG/4ML VIAL IV SCH ×2 (06:18→17:25)
[2021-02-19 07:24] LABS: CHLORIDE 104 mEq/L (98-107)
[2021-02-19 07:36] LABS: BASOPHILS % 0.1 % (0.0-2.0); HEMATOCRIT. 34.3 % (42.0-52.0); HEMOGLOBIN. 11.1 g/dL (14.0-18.0); LYMPHOCYTES % 7.3 % (20.0-50.0); MEAN CORPUSCULAR HEMOGLOBIN 27.8 pg (28.0-32.0); MEAN CORPUSCULAR VOLUME 85.9 fL (80.0-94.0); MEAN PLATELET VOLUME 8.7 fl (7.4-10.4); MONOCYTES % 8.2 % (2.0-8.0); NEUTROPHILS % 84.4 % (40.0-76.0); PLATELET 252 x1000/uL (130-400); RED BLOOD CELL COUNT 3.99 mill/uL (4.7-6.1); RED CELL DISTRIBUTION WIDTH 19.9 % (11.6-14.6)
[2021-02-19 08:00] VITALS: BP 122/84
[2021-02-19] MEDS: ENOXAPARIN 40MG/0.4ML SYR SUBCUT SCH (08:45)
[2021-02-19] MEDS: PREDNISONE 20MG TABLET PO SCH ×2 (08:45→17:25)
[2021-02-19] MEDS: BUDESONIDE 0.5MG/2ML NEB HHN SCH ×2 (10:47→21:29)
[2021-02-19 12:00] VITALS: BP 108/66
[2021-02-19] MEDS: LOSARTAN POTASSIUM 50 MG TABLET PO SCH ×2 (12:15→12:25)
[2021-02-19] MEDS: POTASSIUM CHLORIDE 20MEQ TABLET SR PO SCH (12:33)
[2021-02-19] MEDS: CLOPIDOGREL 75MG TABLET PO SCH (12:33)
[2021-02-19] MEDS: ASPIRIN 81MG EC TABLET PO SCH (12:33)
[2021-02-19] MEDS: AZITHROMYCIN 500 MG in DEXT 5% WATER 250 ML IV SCH (15:33)
[2021-02-19 16:00] VITALS: BP 112/81
[2021-02-19 20:00] VITALS: BP 98/59
[2021-02-19] MEDS: CARVEDILOL 6.25 MG TABLET PO SCH (21:00)
[2021-02-19] MEDS: ATORVASTATIN CALCIUM 40MG TABLET PO SCH (21:08)
[2021-02-20] VITALS: BP 104/76
[2021-02-20] MEDS: IPRATROPIUM/ALBUTEROL 0.5-3(2.5)MG/3ML NEB HHN SCH ×3 (01:08→13:52)
[2021-02-20 04:00] VITALS: BP 119/75
[2021-02-20] MEDS: FUROSEMIDE 40MG/4ML VIAL IV SCH ×2 (06:37→16:51)
[2021-02-20 06:45] LABS: HEMATOCRIT. 33.9 % (42.0-52.0); HEMOGLOBIN. 11.1 g/dL (14.0-18.0); MEAN CORPUSCULAR HEMOGLOBIN 28.1 pg (28.0-32.0); MEAN CORPUSCULAR VOLUME 85.6 fL (80.0-94.0); MEAN PLATELET VOLUME 8.9 fl (7.4-10.4); PLATELET 274 x1000/uL (130-400); RED BLOOD CELL COUNT 3.96 mill/uL (4.7-6.1)
[2021-02-20 06:56] LABS: CHLORIDE 103 mEq/L (98-107)
[2021-02-20 08:00] VITALS: BP 113/83
[2021-02-20] MEDS: BUDESONIDE 0.5MG/2ML NEB HHN SCH (08:19)
[2021-02-20] MEDS: PREDNISONE 20MG TABLET PO SCH ×2 (08:59→16:51)
[2021-02-20] MEDS: ASPIRIN 81MG EC TABLET PO SCH (08:59)
[2021-02-20] MEDS: AZITHROMYCIN 500 MG TABLET PO SCH (08:59)
[2021-02-20] MEDS: CLOPIDOGREL 75MG TABLET PO SCH (08:59)
[2021-02-20] MEDS: POTASSIUM CHLORIDE 20MEQ TABLET SR PO SCH (08:59)
[2021-02-20] MEDS: CARVEDILOL 6.25 MG TABLET PO SCH ×2 (09:00→21:00)
[2021-02-20] MEDS: ENOXAPARIN 40MG/0.4ML SYR SUBCUT SCH (09:00)
[2021-02-20] MEDS: LOSARTAN POTASSIUM 50 MG TABLET PO SCH (09:00)
[2021-02-20] MEDS: GUAIFENESIN 600MG ER TABLET PO SCH ×2 (10:34→21:16)
[2021-02-20 12:00] VITALS: BP 109/75
[2021-02-20 16:00] VITALS: BP 104/64
[2021-02-20 20:00] VITALS: BP 93/55
[2021-02-20] MEDS: ATORVASTATIN CALCIUM 40MG TABLET PO SCH (21:16)
[2021-02-21] VITALS: BP_SYST 105; BP_SYST 136; BP_DIAS 70; BP_DIAS 85
[2021-02-21] MEDS: IPRATROPIUM/ALBUTEROL 0.5-3(2.5)MG/3ML NEB HHN SCH ×4 (00:04→21:06)
[2021-02-21] MEDS: BUDESONIDE 0.5MG/2ML NEB HHN SCH ×2 (00:05→07:55)
[2021-02-21 04:00] VITALS: BP 108/68
[2021-02-21 07:10] LABS: BASOPHILS % 0.1 % (0.0-2.0); HEMATOCRIT. 33.2 % (42.0-52.0); HEMOGLOBIN. 10.8 g/dL (14.0-18.0); MEAN CORPUSCULAR HEMOGLOBIN 27.7 pg (28.0-32.0); MEAN CORPUSCULAR VOLUME 85.4 fL (80.0-94.0); MEAN PLATELET VOLUME 8.6 fl (7.4-10.4); MONOCYTES % 9.2 % (2.0-8.0); NEUTROPHILS % 82.7 % (40.0-76.0); PLATELET 286 x1000/uL (130-400); RED BLOOD CELL COUNT 3.89 mill/uL (4.7-6.1); RED CELL DISTRIBUTION WIDTH 20.1 % (11.6-14.6)
[2021-02-21 07:31] LABS: CHLORIDE 102 mEq/L (98-107)
[2021-02-21 08:00] VITALS: BP 103/74
[2021-02-21] MEDS: CARVEDILOL 6.25 MG TABLET PO SCH ×2 (09:00→21:00)
[2021-02-21] MEDS: LOSARTAN POTASSIUM 50 MG TABLET PO SCH (09:00)
[2021-02-21] MEDS: CLOPIDOGREL 75MG TABLET PO SCH (09:15)
[2021-02-21] MEDS: FUROSEMIDE 40MG/4ML VIAL IV SCH ×2 (09:15→16:59)
[2021-02-21] MEDS: PREDNISONE 20MG TABLET PO SCH (09:15)
[2021-02-21] MEDS: POTASSIUM CHLORIDE 20MEQ TABLET SR PO SCH (09:15)
[2021-02-21] MEDS: ASPIRIN 81MG EC TABLET PO SCH (09:15)
[2021-02-21] MEDS: GUAIFENESIN 600MG ER TABLET PO SCH ×2 (09:15→21:26)
[2021-02-21] MEDS: AZITHROMYCIN 500 MG TABLET PO SCH (09:15)
[2021-02-21] MEDS: ENOXAPARIN 40MG/0.4ML SYR SUBCUT SCH (09:15)
[2021-02-21 10:03] LABS: PLATELET ESTIMATE NORMAL
[2021-02-21 12:00] VITALS: BP 98/65
[2021-02-21 16:00] VITALS: BP 109/71
[2021-02-21 20:00] VITALS: BP 96/84
[2021-02-21] MEDS: ATORVASTATIN CALCIUM 40MG TABLET PO SCH (21:27)
[2021-02-22] VITALS: BP 97/68
[2021-02-22] MEDS: IPRATROPIUM/ALBUTEROL 0.5-3(2.5)MG/3ML NEB HHN SCH ×4 (01:20→21:10)
[2021-02-22 04:00] VITALS: BP 103/72
[2021-02-22] MEDS: FUROSEMIDE 40MG/4ML VIAL IV SCH ×2 (06:16→17:06)
[2021-02-22 08:00] VITALS: BP 95/60
[2021-02-22] MEDS: AZITHROMYCIN 500 MG TABLET PO SCH (09:00)
[2021-02-22] MEDS ORDERED: PREDNISONE 20MG TABLET PO SCH (09:00)
[2021-02-22] MEDS: CARVEDILOL 6.25 MG TABLET PO SCH ×2 (09:00→21:00)
[2021-02-22] MEDS: LOSARTAN POTASSIUM 50 MG TABLET PO SCH (09:00)
[2021-02-22] MEDS: ENOXAPARIN 40MG/0.4ML SYR SUBCUT SCH (09:01)
[2021-02-22] MEDS: CLOPIDOGREL 75MG TABLET PO SCH (09:01)
[2021-02-22] MEDS: ASPIRIN 81MG EC TABLET PO SCH (09:01)
[2021-02-22] MEDS: GUAIFENESIN 600MG ER TABLET PO SCH ×2 (09:01→22:16)
[2021-02-22] MEDS: POTASSIUM CHLORIDE 20MEQ TABLET SR PO SCH (09:01)
[2021-02-22 12:00] VITALS: BP 95/60
[2021-02-22] MEDS ORDERED: METOLAZONE 10MG TABLET PO NR (13:00)
[2021-02-22 16:00] VITALS: BP 105/64
[2021-02-22] MEDS: PREDNISONE 20MG TABLET PO SCH (17:07)
[2021-02-22 20:00] VITALS: BP 98/58
[2021-02-22] MEDS: ATORVASTATIN CALCIUM 40MG TABLET PO SCH (22:16)
[2021-02-23] VITALS: BP 98/62
[2021-02-23] MEDS: IPRATROPIUM/ALBUTEROL 0.5-3(2.5)MG/3ML NEB HHN SCH ×6 (00:55→20:31)
[2021-02-23] MEDS: ACETYLCYSTEINE 100MG/ML 10% VIAL 4ML INH SCH ×3 (00:55→16:41)
[2021-02-23 04:00] VITALS: BP 107/64
[2021-02-23 06:20] LABS: BASOPHILS % 0.1 % (0.0-2.0); HEMATOCRIT. 33.3 % (42.0-52.0); HEMOGLOBIN. 11.1 g/dL (14.0-18.0); LYMPHOCYTES % 8.9 % (20.0-50.0); MEAN CORPUSCULAR HEMOGLOBIN 28.4 pg (28.0-32.0); MEAN CORPUSCULAR VOLUME 85.2 fL (80.0-94.0); MEAN PLATELET VOLUME 8.2 fl (7.4-10.4); MONOCYTES % 8.1 % (2.0-8.0); NEUTROPHILS % 82.9 % (40.0-76.0); PLATELET 326 x1000/uL (130-400); RED BLOOD CELL COUNT 3.91 mill/uL (4.7-6.1); RED CELL DISTRIBUTION WIDTH 19.5 % (11.6-14.6)
[2021-02-23 07:01] LABS: CHLORIDE 97 mEq/L (98-107)
[2021-02-23 08:00] VITALS: BP 98/50
[2021-02-23] MEDS: LOSARTAN POTASSIUM 50 MG TABLET PO SCH (09:00)
[2021-02-23] MEDS: CARVEDILOL 6.25 MG TABLET PO SCH ×2 (09:00→21:00)
[2021-02-23] MEDS: CLOPIDOGREL 75MG TABLET PO SCH (09:13)
[2021-02-23] MEDS: GUAIFENESIN 600MG ER TABLET PO SCH ×2 (09:13→21:35)
[2021-02-23] MEDS: AZITHROMYCIN 500 MG TABLET PO SCH (09:13)
[2021-02-23] MEDS: PREDNISONE 20MG TABLET PO SCH ×2 (09:13→17:32)
[2021-02-23] MEDS: ASPIRIN 81MG EC TABLET PO SCH (09:14)
[2021-02-23] MEDS: ENOXAPARIN 40MG/0.4ML SYR SUBCUT SCH (09:14)
[2021-02-23] MEDS: POTASSIUM CHLORIDE 20MEQ TABLET SR PO SCH (09:14)
[2021-02-23 12:00] VITALS: BP 107/72
[2021-02-23] MEDS: FUROSEMIDE 40MG/4ML VIAL IV SCH ×2 (13:16→18:20)
[2021-02-23 13:55] LABS: BG BASE EXCESS 4.8 mmol/L (-2.0-2.0); BG CARBOXYHEMOGLOBIN 0.3 % (0.5-1.5); BG DEOXYHEMOGLOBIN 7.8 % (0.0-5.0); BG FRACTION INSPIRED OXYGEN 21; BG HCO3 ACT 28.4 mmol/L (22.0-26.0); BG METHEMOGLOBIN 0.2 % (0.0-1.5); BG OXYGEN SATURATION 92.2 % (92.0-98.5); BG OXYHEMOGLOBIN 91.7 % (94.0-97.0); BG PCO2 38.8 mmHg (35.0-45.0); BG PH 7.483 (7.350-7.450); BG PO2 63.8 mmHg (75.0-100.0); BG SAMPLE SITE LEFT RADIAL; BG TOTAL HEMOGLOBIN 12.9 g/dL (12.0-18.0); BG VENT MODE ROOM AIR
[2021-02-23 16:00] VITALS: BP 107/90
[2021-02-23 20:00] VITALS: BP 96/54
[2021-02-23] MEDS: ATORVASTATIN CALCIUM 40MG TABLET PO SCH (21:35)
[2021-02-24] VITALS: BP 106/62
[2021-02-24] MEDS: IPRATROPIUM/ALBUTEROL 0.5-3(2.5)MG/3ML NEB HHN SCH ×6 (00:35→20:59)
[2021-02-24] MEDS: ACETYLCYSTEINE 100MG/ML 10% VIAL 4ML INH SCH ×3 (00:36→13:30)
[2021-02-24 04:00] VITALS: BP 100/55
[2021-02-24] MEDS: FUROSEMIDE 40MG/4ML VIAL IV SCH ×2 (06:34→17:46)
[2021-02-24 07:27] LABS: HEMOGLOBIN. 11.6 g/dL (14.0-18.0); MEAN CORPUSCULAR HEMOGLOBIN 28.3 pg (28.0-32.0); MEAN PLATELET VOLUME 8.1 fl (7.4-10.4); PLATELET 335 x1000/uL (130-400); RED BLOOD CELL COUNT 4.11 mill/uL (4.7-6.1); RED CELL DISTRIBUTION WIDTH 19.4 % (11.6-14.6)
[2021-02-24 08:00] VITALS: BP 106/68
[2021-02-24 08:02] LABS: CHLORIDE 94 mEq/L (98-107)
[2021-02-24] MEDS: CARVEDILOL 6.25 MG TABLET PO SCH ×2 (08:43→21:00)
[2021-02-24] MEDS: CLOPIDOGREL 75MG TABLET PO SCH ×2 (08:44→09:04)
[2021-02-24] MEDS: LOSARTAN POTASSIUM 50 MG TABLET PO SCH (08:46)
[2021-02-24] MEDS: GUAIFENESIN 600MG ER TABLET PO SCH ×2 (08:55→09:02)
[2021-02-24] MEDS: PREDNISONE 20MG TABLET PO SCH ×2 (08:55→16:20)
[2021-02-24] MEDS: ENOXAPARIN 40MG/0.4ML SYR SUBCUT SCH (08:57)
[2021-02-24] MEDS: ASPIRIN 81MG EC TABLET PO SCH (09:07)
[2021-02-24] MEDS: POTASSIUM CHLORIDE 20MEQ TABLET SR PO SCH (10:50)
[2021-02-24 12:00] VITALS: BP 104/67
[2021-02-24 13:48] LABS: PLATELET ESTIMATE NORMAL
[2021-02-24] MEDS ORDERED: LOSA50TA3 PO (15:27)
[2021-02-24] MEDS ORDERED: GUAI600T44 PO (15:27)
[2021-02-24] MEDS ORDERED: LIP40 PO (15:27)
[2021-02-24] MEDS ORDERED: FLUT1DIS2 INH (15:29)
[2021-02-24] MEDS ORDERED: FAMO20TA8 MT (15:29)
[2021-02-24] MEDS ORDERED: ALBU18HF2 IH (15:29)
[2021-02-24] MEDS ORDERED: P20 MT (15:29)
[2021-02-24] MEDS ORDERED: METOLAZONE 5MG TABLET PO SCH (15:30)
[2021-02-24 16:00] VITALS: BP 100/64
[2021-02-24 20:00] VITALS: BP 95/62
[2021-02-24] MEDS: ATORVASTATIN CALCIUM 40MG TABLET PO SCH (21:14)
[2021-02-25] VITALS: BP 98/61
[2021-02-25] MEDS: IPRATROPIUM/ALBUTEROL 0.5-3(2.5)MG/3ML NEB HHN SCH ×3 (01:07→09:42)
[2021-02-25] MEDS: ACETYLCYSTEINE 100MG/ML 10% VIAL 4ML INH SCH ×2 (01:07→09:42)
[2021-02-25 04:00] VITALS: BP 96/61
[2021-02-25 06:32] LABS: BASOPHILS % 0.1 % (0.0-2.0); HEMATOCRIT. 34.7 % (42.0-52.0); HEMOGLOBIN. 11.7 g/dL (14.0-18.0); LYMPHOCYTES % 8.1 % (20.0-50.0); MEAN CORPUSCULAR HEMOGLOBIN 28.5 pg (28.0-32.0); MEAN CORPUSCULAR VOLUME 84.7 fL (80.0-94.0); MEAN PLATELET VOLUME 8.1 fl (7.4-10.4); MONOCYTES % 7.4 % (2.0-8.0); NEUTROPHILS % 84.4 % (40.0-76.0); PLATELET 324 x1000/uL (130-400); RED CELL DISTRIBUTION WIDTH 19.4 % (11.6-14.6)
[2021-02-25 08:00] VITALS: BP 102/61
[2021-02-25] MEDS: CARVEDILOL 6.25 MG TABLET PO SCH (08:33)
[2021-02-25] MEDS: LOSARTAN POTASSIUM 50 MG TABLET PO SCH (08:33)
[2021-02-25] MEDS: ASPIRIN 81MG EC TABLET PO SCH (08:35)
[2021-02-25] MEDS: CLOPIDOGREL 75MG TABLET PO SCH (08:35)
[2021-02-25] MEDS: ENOXAPARIN 40MG/0.4ML SYR SUBCUT SCH (08:35)
[2021-02-25] MEDS: GUAIFENESIN 600MG ER TABLET PO SCH (08:35)
[2021-02-25] MEDS: PREDNISONE 20MG TABLET PO SCH (08:36)
[2021-02-25] MEDS: POTASSIUM CHLORIDE 20MEQ TABLET SR PO SCH (08:36)
[2021-02-25] MEDS: FUROSEMIDE 40MG/4ML VIAL IV SCH (08:42)
[2021-02-25 10:39] VITALS: BP 102/61
[2021-02-26] MEDS ORDERED: FUROSEMIDE 40MG TABLET PO SCH (09:00)
== END 2021-02-25 11:45 | disposition home or self-care (01) | DRG 139 ==
LOC: ER 15:10 → 7EST 02-18 03:11 → ENRESERV 02-18 07:11
PROVIDERS: ADMIT Internal Medicine; ATTEND Internal Medicine
DX: J18.9 Pneumonia, unspecified organism (principal); J96.00 Acute respiratory failure, unspecified whether with hypoxia or hypercapnia; I50.33 Acute on chronic diastolic (congestive) heart failure; I13.0 Hypertensive heart and chronic kidney disease with heart failure and stage 1 through stage 4 chronic kidney disease, or unspecified chronic kidney disease; J44.0 Chronic obstructive pulmonary disease with (acute) lower respiratory infection; E11.22 Type 2 diabetes mellitus with diabetic chronic kidney disease; I25.5 Ischemic cardiomyopathy; J44.1 Chronic obstructive pulmonary disease with (acute) exacerbation; N18.9 Chronic kidney disease, unspecified; E78.5 Hyperlipidemia, unspecified; I34.0 Nonrheumatic mitral (valve) insufficiency; I27.20 Pulmonary hypertension, unspecified; R74.01 Elevation of levels of liver transaminase levels; I25.10 Atherosclerotic heart disease of native coronary artery without angina pectoris; I25.2 Old myocardial infarction; Z79.899 Other long term (current) drug therapy; Z82.49 Family history of ischemic heart disease and other diseases of the circulatory system; Z95.1 Presence of aortocoronary bypass graft; Z79.82 Long term (current) use of aspirin; I69.354 Hemiplegia and hemiparesis following cerebral infarction affecting left non-dominant side
CPT/HCPCS: 36415; 36600; 71045; 80048; 80053; 80076; 81003; 82375; 82805; 83735; 83880; 84443; 84484; 85025; 93005; 93306; 93970; 94640; 94660; 94667; 97116; 97162; 97166; 99291; J0456; J1650; J1940; J7040; J7060; J7512; J7608; J7626

== ENCOUNTER 2023-10-10 10:36 | Inpatient (IN) | payer MEDICAID ==
[~2023-10-10] VITALS: Ht 160 cm; Wt 63.5 kg
[~2023-10-10 10:36] MED LIST changes: +ALBU18HF2 IH; +FAMO20TA8 MT; +FLUT1DIS2 INH; +FURO80TA87 MT; +GUAI600T44 PO; +LIP40 PO; -LOSA25TA3 PO; +POTA-205 MT
[2023-10-10 11:15] LABS: HEMOGLOBIN. 15.5 g/dL (14.0-18.0); MEAN CORPUSCULAR HEMOGLOBIN 30.9 pg (28.0-32.0); MEAN CORPUSCULAR VOLUME 93.5 fL (80.0-94.0); MEAN PLATELET VOLUME 8.2 fl (7.4-10.4); PLATELET 350 x1000/uL (130-400); RED BLOOD CELL COUNT 5.03 mill/uL (4.7-6.1); RED CELL DISTRIBUTION WIDTH 16.3 % (11.6-14.6); WHITE BLOOD COUNT 7.5 x1000/uL (4.5-11.0)
[2023-10-10 11:18] LABS: DIFFERENTIAL COMMENT 1
[2023-10-10 11:25] LABS: CHLORIDE 102 mEq/L (98-107); POTASSIUM 3.7 mEq/L (3.5-5.1); SODIUM 136 mEq/L (136-145)
[2023-10-10 11:26] LABS: CALCIUM 8.1 mg/dL (8.7-10.4); CARBON DIOXIDE 28 mEq/L (21-32)
[2023-10-10 11:31] LABS: CREATININE 1.2 mg/dL (0.6-1.3); GLUCOSE 96 mg/dL (70-105); UREA NITROGEN BLOOD 12 mg/dL (9-23)
[2023-10-10 11:32] LABS: TROPONIN I HIGH SENSITIVITY 19 ng/L (3.0-53)
[2023-10-10] MEDS: ASPIRIN 81MG TABLET PO ONE (11:48)
[2023-10-10] MEDS ORDERED: IPRATROPIUM/ALBUTEROL 0.5-3(2.5)MG/3ML NEB HHN PRN (14:45)
[2023-10-10] MEDS ORDERED: ONDANSETRON HCL 4MG/2ML INJ IV PRN (14:45)
[2023-10-10] MEDS ORDERED: DIPHENHYDRAMINE 50MG/ML VIAL IV PRN (14:45)
[2023-10-10] MEDS ORDERED: ACETAMINOPHEN 325MG TABLET PO PRN (14:45)
[2023-10-10] MEDS ORDERED: CLONIDINE 0.1MG TABLET PO PRN (14:45)
[2023-10-10 15:41] LABS: ANISOCYTOSIS 1+; PLATELET ESTIMATE NORMAL
[2023-10-10] MEDS ORDERED: NON FORMULARY PATIENT HOME MED XX SCH (15:45)
[2023-10-10 17:37] LABS: TROPONIN I HIGH SENSITIVITY 16 ng/L (3.0-53)
[2023-10-10] MEDS: CARVEDILOL 3.125 MG TABLET PO SCH (21:00)
[2023-10-11] MEDS: SACUBITRIL/VALSARTAN 49MG/51MG TABLET PO SCH (00:22)
[2023-10-11] MEDS: GUAIFENESIN 600MG ER TABLET PO SCH (00:23)
[2023-10-11 04:53] LABS: BASOPHILS % 0.9 % (0.0-2.0); EOSINOPHILS % 0.5 % (0.0-5.0); HEMATOCRIT. 42.6 % (42.0-52.0); HEMOGLOBIN. 14.2 g/dL (14.0-18.0); LYMPHOCYTES % 13.1 % (20.0-50.0); MEAN CORPUSCULAR HEMOGLOBIN 31.2 pg (28.0-32.0); MEAN CORPUSCULAR HGB CONC 33.2 g/dL (31.0-37.0); MEAN CORPUSCULAR VOLUME 93.8 fL (80.0-94.0); MEAN PLATELET VOLUME 8.2 fl (7.4-10.4); MONOCYTES % 7.8 % (2.0-8.0); NEUTROPHILS % 77.7 % (40.0-76.0); PLATELET 320 x1000/uL (130-400); RED BLOOD CELL COUNT 4.54 mill/uL (4.7-6.1); RED CELL DISTRIBUTION WIDTH 16.2 % (11.6-14.6); WHITE BLOOD COUNT 6.4 x1000/uL (4.5-11.0)
[2023-10-11 05:00] LABS: CHLORIDE 105 mEq/L (98-107); POTASSIUM 3.5 mEq/L (3.5-5.1); SODIUM 138 mEq/L (136-145)
[2023-10-11 05:01] LABS: CALCIUM 7.9 mg/dL (8.7-10.4); CARBON DIOXIDE 29 mEq/L (21-32)
[2023-10-11 05:06] LABS: CREATININE 1.1 mg/dL (0.6-1.3); GLUCOSE 107 mg/dL (70-105); UREA NITROGEN BLOOD 15 mg/dL (9-23)
[2023-10-11 14:30] VITALS: BP 116/67; PULSE 77; RESP 18; TEMP 98.7
[2023-10-11] MEDS: DEXAMETHASONE 10 MG/ML VIAL IV SCH (15:16)
[2023-10-11] MEDS: ENOXAPARIN 40MG/0.4ML SYR SUBCUT SCH (15:16)
[2023-10-11 16:00] VITALS: BP 102/54; PULSE 71; RESP 18; TEMP 97.8
[2023-10-11 20:00] VITALS: BP 97/64; PULSE 60; RESP 19; TEMP 98.8
[2023-10-12] VITALS: BP 94/50; PULSE 56; RESP 18; TEMP 97.7
[2023-10-12 04:00] VITALS: BP 94/31; PULSE 60; RESP 18; TEMP 96.1
[2023-10-12 07:14] LABS: CHLORIDE 104 mEq/L (98-107); POTASSIUM 4.2 mEq/L (3.5-5.1); SODIUM 135 mEq/L (136-145)
[2023-10-12 07:15] LABS: CARBON DIOXIDE 26 mEq/L (21-32)
[2023-10-12 07:16] LABS: CALCIUM 7.9 mg/dL (8.7-10.4)
[2023-10-12 07:20] LABS: GLUCOSE 121 mg/dL (70-105)
[2023-10-12 07:21] LABS: UREA NITROGEN BLOOD 14 mg/dL (9-23)
[2023-10-12 07:22] LABS: ALANINE AMINOTRANSFERASE 16 IU/L (10-49); ALBUMIN 2.9 g/dL (3.2-4.8); ASPARTATE AMINOTRANSFERASE 21 IU/L (<34)
[2023-10-12 07:23] LABS: BILIRUBIN TOTAL 0.6 mg/dL (0.1-1.0); PROTEIN TOTAL 5.4 g/dL (6.0-8.3)
[2023-10-12 07:26] LABS: BASOPHILS % 0.1 % (0.0-2.0); HEMATOCRIT. 41.9 % (42.0-52.0); LYMPHOCYTES % 8.4 % (20.0-50.0); MEAN CORPUSCULAR HEMOGLOBIN 31.6 pg (28.0-32.0); MEAN CORPUSCULAR HGB CONC 33.5 g/dL (31.0-37.0); MEAN CORPUSCULAR VOLUME 94.4 fL (80.0-94.0); MEAN PLATELET VOLUME 8.5 fl (7.4-10.4); MONOCYTES % 5.2 % (2.0-8.0); NEUTROPHILS % 86.3 % (40.0-76.0); PLATELET 285 x1000/uL (130-400); RED BLOOD CELL COUNT 4.43 mill/uL (4.7-6.1); RED CELL DISTRIBUTION WIDTH 16.3 % (11.6-14.6); WHITE BLOOD COUNT 8.7 x1000/uL (4.5-11.0)
[2023-10-12 08:00] VITALS: BP 107/68; PULSE 64; RESP 20; TEMP 98.1
[2023-10-12 12:00] VITALS: BP 97/54; PULSE 66; RESP 20; TEMP 97.8
[2023-10-12 15:58] LABS: CLARITY URINE CLEAR (CLEAR); COLOR URINE YELLOW (YELLOW); GLUCOSE URINE NEGATIVE (NEGATIVE); KETONES URINE NEGATIVE (NEGATIVE); LEUKOCYTE ESTERASE URINE NEGATIVE (NEGATIVE); NITRITE URINE NEGATIVE (NEGATIVE); OCCULT BLOOD URINE NEGATIVE (NEGATIVE); PH URINE 5.5 (4.5-8.0); PROTEIN URINE NEGATIVE (NEGATIVE); SPECIFIC GRAVITY URINE 1.018 (1.005-1.030); UROBILINOGEN URINE 0.2 E.U./dL (0.2-1.0)
[2023-10-12 16:00] VITALS: PULSE 59; RESP 20; TEMP 97.8
[2023-10-12 18:20] VITALS: BP 110/65; PULSE 60; TEMP 98; O2SAT 98
== END 2023-10-12 18:50 | disposition home or self-care (01) | DRG 137 ==
LOC: ER 11:23 → MICUSO 13:39 → EDBEDREQ 13:45 → 5WST 10-11 12:07 → 7EST 10-11 14:15
PROVIDERS: ADMIT Family Medicine Adult Medicine; ATTEND Family Medicine Adult Medicine
DX: U07.1 COVID-19 (principal); I13.0 Hypertensive heart and chronic kidney disease with heart failure and stage 1 through stage 4 chronic kidney disease, or unspecified chronic kidney disease; I50.9 Heart failure, unspecified; I69.354 Hemiplegia and hemiparesis following cerebral infarction affecting left non-dominant side; N18.9 Chronic kidney disease, unspecified; I25.10 Atherosclerotic heart disease of native coronary artery without angina pectoris; I25.5 Ischemic cardiomyopathy; E78.00 Pure hypercholesterolemia, unspecified; Z95.1 Presence of aortocoronary bypass graft; Z95.810 Presence of automatic (implantable) cardiac defibrillator; Z79.899 Other long term (current) drug therapy
CPT/HCPCS: 36415; 71045; 80048; 80053; 81003; 83880; 84145; 84484; 85025; 87426; 93005; 93970; 99285; J1100; J1650

== ENCOUNTER 2024-09-29 01:25 | Emergency (ER) | payer MEDICAID ==
[~2024-09-29] VITALS: Ht 167.6 cm; Wt 64.0 kg
[~2024-09-29 01:25] MED LIST changes: -FURO40TA5 MT
[2024-09-29 01:28] VITALS: O2SAT 99
[2024-09-29 03:13] LABS: BASOPHILS % 0.5 % (0.0-2.0); CREATININE 1.3 mg/dL (0.6-1.3); EOSINOPHILS % 0.3 % (0.0-5.0); HEMATOCRIT. 50.0 % (42.0-52.0); HEMOGLOBIN. 16.4 g/dL (14.0-18.0); LYMPHOCYTES % 11.2 % (20.0-50.0); MEAN PLATELET VOLUME 9.8 fl (7.4-10.4); MONOCYTES % 5.3 % (2.0-8.0); NEUTROPHILS % 82.7 % (40.0-76.0); PLATELET 189 x1000/uL (130-400); RED BLOOD CELL COUNT 5.45 mill/uL (4.7-6.1); RED CELL DISTRIBUTION WIDTH 15.1 % (11.6-14.6)
[2024-09-29 03:14] LABS: UREA NITROGEN BLOOD 17.0 mg/dL (9-23)
[2024-09-29 04:17] LABS: CLARITY URINE CLEAR (CLEAR); COLOR URINE YELLOW (YELLOW); GLUCOSE URINE 3+ (NEGATIVE); KETONES URINE NEGATIVE (NEGATIVE); LEUKOCYTE ESTERASE URINE NEGATIVE (NEGATIVE); NITRITE URINE NEGATIVE (NEGATIVE); OCCULT BLOOD URINE TRACE (NEGATIVE); PH URINE 5.5 (4.5-8.0); PROTEIN URINE NEGATIVE (NEGATIVE); SPECIFIC GRAVITY URINE 1.013 (1.005-1.030); UROBILINOGEN URINE 0.2 E.U./dL (0.2-1.0)
[2024-09-29] MEDS ORDERED: NITR-87 MT (04:28)
[2024-09-29] MEDS: NITROFURANTOIN 100MG M/M CAPSULE PO ONE (04:42)
[2024-09-29 06:06] LABS: RBC URINE 0-2 /hpf (0-2); WBC URINE 0-2 /hpf (0-2)
[2024-09-29 06:07] LABS: BACTERIA URINE NONE SEEN; SQUAMOUS EPITHELIAL CELL URINE NONE SEEN /lpf (RARE/1+)
[2024-09-29 06:51] VITALS: BP 102/65; PULSE 69; RESP 14; TEMP 37.1; O2SAT 95
== END 2024-09-29 07:30 | disposition home or self-care (01) ==
LOC: ER 01:25
DX: R33.9 Retention of urine, unspecified (principal); I10 Essential (primary) hypertension; I25.10 Atherosclerotic heart disease of native coronary artery without angina pectoris; E78.00 Pure hypercholesterolemia, unspecified; I69.30 Unspecified sequelae of cerebral infarction; Z95.1 Presence of aortocoronary bypass graft; Z79.899 Other long term (current) drug therapy; Z79.82 Long term (current) use of aspirin; Z79.51 Long term (current) use of inhaled steroids
CPT/HCPCS: 80048; 81003; 85025; 36415; 51702; 99284; Z7610

== ENCOUNTER 2024-12-07 16:09 | Emergency (ER) | payer MEDICAID ==
[~2024-12-07] VITALS: Ht 160 cm; Wt 76.0 kg
[~2024-12-07 16:09] MED LIST changes: -GUAI600T44 PO
[2024-12-07 17:28] VITALS: O2SAT 100
[2024-12-07 19:01] LABS: BASOPHILS % 0.6 % (0.0-2.0); EOSINOPHILS % 0.5 % (0.0-5.0); HEMATOCRIT. 43.7 % (42.0-52.0); HEMOGLOBIN. 14.4 g/dL (14.0-18.0); LYMPHOCYTES % 13.6 % (20.0-50.0); MEAN PLATELET VOLUME 9.5 fl (7.4-10.4); MONOCYTES % 11.2 % (2.0-8.0); NEUTROPHILS % 74.1 % (40.0-76.0); PLATELET 214 x1000/uL (130-400); RED BLOOD CELL COUNT 4.71 mill/uL (4.7-6.1); RED CELL DISTRIBUTION WIDTH 16.0 % (11.6-14.6)
[2024-12-07 19:15] LABS: CREATININE 1.2 mg/dL (0.6-1.3); UREA NITROGEN BLOOD 14.0 mg/dL (9-23)
[2024-12-07 20:15] LABS: CLARITY URINE TURBID (CLEAR); COLOR URINE ORANGE (YELLOW); GLUCOSE URINE NEGATIVE (NEGATIVE); KETONES URINE TRACE (NEGATIVE); LEUKOCYTE ESTERASE URINE 3+ (NEGATIVE); NITRITE URINE NEGATIVE (NEGATIVE); OCCULT BLOOD URINE 2+ (NEGATIVE); PH URINE 8.5 (4.5-8.0); PROTEIN URINE 3+ (NEGATIVE); SPECIFIC GRAVITY URINE 1.023 (1.005-1.030); UROBILINOGEN URINE 1.0 E.U./dL (0.2-1.0)
[2024-12-07 20:31] LABS: BACTERIA URINE 4+; SQUAMOUS EPITHELIAL CELL URINE FEW /lpf (RARE/1+)
[2024-12-07 20:32] LABS: WBC URINE 50-100 /hpf (0-2)
[2024-12-07] MEDS ORDERED: CEFP200T13 MT (20:56)
[2024-12-07] MEDS: CEFTRIAXONE SODIUM 1G VIAL IM ONE (21:27)
[2024-12-07] MEDS: LIDOCAINE HCL 1% 20ML VIAL INFIL ONE (21:28)
[2024-12-07 21:31] VITALS: BP 149/89; PULSE 84; RESP 16; TEMP 36.8; O2SAT 98
== END 2024-12-07 21:35 | disposition home or self-care (01) ==
LOC: ER 16:09
DX: T83.091A Other mechanical complication of indwelling urethral catheter, initial encounter (principal); N39.0 Urinary tract infection, site not specified; I25.2 Old myocardial infarction; Z46.6 Encounter for fitting and adjustment of urinary device; Z79.51 Long term (current) use of inhaled steroids; Z79.82 Long term (current) use of aspirin; Z79.899 Other long term (current) drug therapy; Y73.8 Miscellaneous gastroenterology and urology devices associated with adverse incidents, not elsewhere classified
CPT/HCPCS: 99284; 80048; 81003; 85025; 87086; 87186; 87077; 36415; 51702; 96372; J0696; J2003